=== PATIENT | male | born 1955 | race Caucasian/White ===

== ENCOUNTER 2017-01-01 15:03 | Inpatient (IN) | payer OTHER ==
[2017-01-01 16:04] VITALS: BMI 27.2
--- NOTE | 2017-01-01 16:07 | PDOC ---
History of Present Illness - General Stated Complaint: Alcohol intoxication Time Seen by Provider: 01/01/17 15:16 History Source: Patient Exam Limitations: No Limitations - History of Present Illness Initial Comments: 01/01/17 16:00 The patient is a 61M with no PMH who presents to the ED intoxicated after sustaining a fall. The patient had no LOC. He did have head trauma and is not on any blood thinners. He has no complaints of any kind of pain. He is still intoxicated because his story is changing constantly. He states he drinks at least 12 beers a day. Denies drug use or liquor use. Smokes 1/2 ppd. Past History - Past Medical History Allergies/Adverse Reactions: Allergies Allergy/AdvReac Type Severity Reaction Status Date / Time Penicillins Allergy Severe Swelling Verified 04/08/16 15:37 Home Medications: Ambulatory Orders NK [No Known Home Medication] 01/01/17 - Immunization History Immunization Up to Date: No - Psycho/Social/Smoking Cessation Hx Suicidal Ideation: No Smoking History: Never smoked Hx Alcohol Use: Yes Review of Systems - Review of Systems Able to Perform ROS?: (intoxicated) Is the patient limited Citizen Of [place] proficient: No Constitutional: No: Chills, Fever HEENTM: No: Ear Pain, Nose Pain, Mouth Pain Respiratory: No: Cough, Shortness of Breath Cardiac (ROS): No: Chest Pain ABD/GI: No: Nausea, Vomiting, Other (abd pain) Neurological: No: Headache, Numbness, Tingling, Weakness *Physical Exam - Physical Exam General Appearance: Yes: Nourished, Disheveled. No: Mild Distress HEENT: positive: Normal Voice, Hearing Grossly Normal Respiratory/Chest: positive: Lungs Clear, Normal Breath Sounds. negative: Chest Tender, Respiratory Distress, Accessory Muscle Use Cardiovascular: positive: Regular Rhythm, S1, S2, Tachycardia, Diastolic Murmur , Systolic Murmur Gastrointestinal/Abdominal: positive: Flat, Soft. negative: Tender, Distended, Guarding, Rebound, Tenderness Extremity: positive: Other (Abrasion on L elbow, b/l knees. Contusion on R forehead with hematoma.). negative: Swelling Integumentary: positive: Dry, Warm Neurologic: positive: Other (cannot perform neurologic exam) Procedures - Bedside Ultrasound Bedside Ultrasound: Focused Assessment w/Sonography for Trauma Remarks: 01/01/17 17:27 negative Heart Score/ECG Review - ECG Impressions Normal ECG: Yes Tachycardia: Sinus ED Treatment Course - LABORATORY CBC & Chemistry Diagram: 01/01/17 16:45 01/03/17 07:29 Medical Decision Making - Medical Decision Making 01/01/17 17:25 THe patient is a 61M with a hx of alcohol abuse who presents to the ED after sustaining a fall while intoxicated. BA is 299. He sustained abrasions to his L elbow, and b/l knees. He has a contusion w/ hematoma over his R forehead. I have ordered basic labs, a banana bag, and head CT to r/o intracranial hemorrhage. Bedside fast exam is negative, done with Dr. Merritt. *DC/Admit/Observation/Transfer Diagnosis at time of Disposition: Head injury Qualifiers: Encounter type: initial encounter Qualified Code(s): S09.90XA - Unspecified injury of head, initial encounter Alcohol withdrawal Qualifiers: Complication of substance-induced condition: with unspecified complication Qualified Code(s): F10.239 - Alcohol dependence with withdrawal, unspecified - Referrals - Attestations Physician Attestion: 01/01/17 16:24 I, Dr. Adriano Small, attest that this document has been prepared under my direction and personally reviewed by me in its entirety. I further attest, that it accurately reflects all work, treatment, procedures and medical decision -making performed by me.
[2017-01-01] MEDS ORDERED: FOLIC ACID INJECTION - 1 MG, THIAMINE HCL 100 MG, MULTIVIT INJECTION ADULT 10 ML in SOD... IVPB ONE (16:12)
--- NOTE | 2017-01-01 17:15 | PDOC ---
Attending Attestation - Resident Resident Name: VíctorfrancaAdriano - ED Attending Attestation I have performed the following: I have examined & evaluated the patient, The case was reviewed & discussed with the resident, I agree w/resident's findings & plan, Exceptions are as noted - HPI HPI: 01/01/17 17:13 Agree with the resident's HPI as documented in the electronic medical record. - Physicial Exam PE: 01/01/17 17:13 Agree with the resident's physical examination as documented in the electronic medical record. - Medical Decision Making 01/01/17 17:13 61-year-old male with history of alcoholism presents to the emergency department with various abrasions to the extremities, trunk and to the head after a reported mechanical fall while intoxicated. He is tachycardic and hypertensive. Differential diagnosis includes but is not limited to: Traumatic brain injury, concussion, abrasions, intoxication, electrolyte abnormality, toxic/metabolic derangement, alcohol withdrawal. Plan: 1. Labs 2. CT head 3. Tetanus toxoid 4. IV fluids for hydration 5. Ativan for sedation 6. Observe and reevaluate
[2017-01-01 17:20] LABS: BASOPHIL 2.3 % (0-2.0); EOSINOPHIL 1.5 % (0-4.5); MCHC 32.8 g/dl (32.0-35.9); MEAN CELL VOLUME 82.4 fl (80-96); MEAN PLT VOLUME 8.9 fl (7.5-11.1); NEUTROPHILS 69.4 % (42.8-82.8); PLATELET COUNT 112 K/MM3 (134-434); WHITE BLOOD COUNT 6.3 K/mm3 (4.0-10.0)
[2017-01-01] MEDS ORDERED: DIPHTH,PERTUSS(ACELL),TET 0.5 ML DISP.SYRIN IM ONE (17:25)
[2017-01-01 19:13] LABS: ALBUMIN 3.4 g/dl (3.4-5.0); ALK PHOS 132 U/L (45-117); ANION GAP 10 (8-16); BILIRUBIN,TOTAL 0.6 mg/dL (0.2-1.0); CALCIUM 8.5 mg/dL (8.5-10.1); CO2 25 mmol/L (21-32); CREATININE 0.7 mg/dL (0.7-1.3); GLUCOSE,RANDOM 111 mg/dL (74-106); SGOT/AST 107 U/L (15-37); SGPT/ALT 44 U/L (12-78); TOT PROT 7.4 g/dl (6.4-8.2)
[2017-01-01] MEDS ORDERED: LORazepam 2 MG/ML SDV VIAL ONE (21:07)
[2017-01-01 21:14] LABS: ANISOCYTOSIS 2+; POLYCHROMASIA 1+
[2017-01-01] MEDS ORDERED: chlordiazePOXIDE HCL 25 MG CAPSULE PO ONE (23:52)
[2017-01-02] MEDS ORDERED: chlordiazePOXIDE HCL 25 MG CAPSULE ONE ×2 (00:05→02:07)
[2017-01-02] MEDS ORDERED: chlordiazePOXIDE HCL 25 MG CAPSULE PO ONE (01:59)
--- NOTE | 2017-01-02 01:59 | PDOC ---
*Physical Exam - Vital Signs Last Vital Signs Temp Pulse Resp BP Pulse Ox 98.1 F 101 H 18 153/94 98 01/01/17 23:17 01/01/17 23:17 01/01/17 23:17 01/01/17 23:17 01/01/17 23:17 ED Treatment Course - LABORATORY CBC & Chemistry Diagram: 01/01/17 16:45 01/01/17 16:45 - ADDITIONAL ORDERS Additional order review: Laboratory Results 01/01/17 01/01/17 18:35 16:45 Sodium 134 L Potassium 3.9 Chloride 99 Carbon Dioxide 25 Anion Gap 10 BUN 7 Creatinine 0.7 Creat Clearance w eGFR > 60 Random Glucose 111 H Calcium 8.5 Total Bilirubin 0.6 AST 107 H ALT 44 Alkaline Phosphatase 132 H Total Protein 7.4 Albumin 3.4 Alcohol, Quantitative 326.9 H* 01/01/17 16:45 RBC 4.38 MCV 82.4 MCHC 32.8 RDW 21.0 H MPV 8.9 Neutrophils % 69.4 Lymphocytes % 15.5 Monocytes % 11.3 H Eosinophils % 1.5 Basophils % 2.3 H - Medications Given in the ED: ED Medications Discontinued Medications Generic Name Dose Route Start Last Admin Trade Name Freq PRN Reason Stop Dose Admin Chlordiazepoxide HCl 50 mg 01/01/17 23:52 01/02/17 00:07 Librium - PO 01/01/17 23:53 50 mg ONCE ONE Administration Diphtheria/Tetanus/Acell Pertussis 0.5 ml 01/01/17 17:25 01/01/17 21:03 Boostrix - IM 01/01/17 17:26 0.5 ml .ONCE ONE Administration Folic Acid 1 mg/ Thiamine HCl 1,000 mls @ 125 mls/hr 01/01/17 16:12 01/01/17 17 :05 100 mg/ Multivitamins/Minerals IVPB 01/02/17 00:11 125 mls/hr 10 ml/ Sodium Chloride ONCE ONE Administration Lorazepam 2 mg 01/01/17 17:06 01/01/17 17:19 Ativan Injection - IVPUSH 01/01/17 17:07 2 mg ONCE ONE Administration Lorazepam 2 mg 01/01/17 20:41 01/01/17 21:05 Ativan Injection - IVPUSH 01/01/17 20:42 2 mg ONCE ONE Administration Medical Decision Making - Medical Decision Making 01/02/17 02:01 have attempted many times to have patient Ambulate. Patient however still very tremulous and unsteady when he attempts to ambulate. Will admit *DC/Admit/Observation/Transfer Diagnosis at time of Disposition: Head injury Qualifiers: Encounter type: initial encounter Qualified Code(s): S09.90XA - Unspecified injury of head, initial encounter Alcohol withdrawal Qualifiers: Complication of substance-induced condition: with unspecified complication Qualified Code(s): F10.239 - Alcohol dependence with withdrawal, unspecified - Discharge Dispostion Admit: Yes - Referrals Referrals: Luis Ordoñez MD [Primary Care Provider] - - Patient Instructions - Post Discharge Activity
[2017-01-02] MEDS ORDERED: KETOROLAC TROMETHAMINE 30 MG/1 ML VIAL IVPUSH ONE (02:02)
[2017-01-02] MEDS ORDERED: KETOROLAC TROMETHAMINE 30 MG/1 ML VIAL ONE (02:07)
--- NOTE | 2017-01-02 03:24 | PN ---
Teaching Attending Note Name of Resident: Jose James ATTENDING PHYSICIAN STATEMENT I saw and evaluated the patient. I reviewed the resident's note and discussed the case with the resident. I agree with the resident's findings and plan as documented. SUBJECTIVE: 61 M with no pmhx who presents s/p fall. He stated he was intoxicated at the time of the fall. States he hit his forhead. No chest pain, pressure, headaches , visual changes. States he drinks 12-14 beers/day and is a current smoker. OBJECTIVE: Physical: VS: Vital Signs Period Temp Pulse Resp BP Sys/Spangler Pulse Ox Last 24 Hr 98.1 F-98.4 F 101-111 18-20 153-173/94-98 97-98 GEN: NAD, Resting in bed HEENT: NCAT, PERRL CARD: RRR S1, S2 RESP: CTAB ABD: BSx4, NTD to palpation EXT: - C/C/E CBCD WBC 6.3 K/mm3 (4.0-10.0) 01/01/17 16:45 RBC 4.38 M/mm3 (4.00-5.60) 01/01/17 16:45 Hgb 11.9 GM/dL (11.7-16.9) 01/01/17 16:45 Hct 36.1 % (35.4-49) 01/01/17 16:45 MCV 82.4 fl (80-96) 01/01/17 16:45 MCHC 32.8 g/dl (32.0-35.9) 01/01/17 16:45 RDW 21.0 % (11.9-15.9) H 01/01/17 16:45 Plt Count 112 K/MM3 (134-434) L 01/01/17 16:45 MPV 8.9 fl (7.5-11.1) 01/01/17 16:45 CMP Sodium 134 mmol/L (136-145) L 01/01/17 16:45 Potassium 3.9 mmol/L (3.5-5.1) 01/01/17 16:45 Chloride 99 mmol/L (98-107) 01/01/17 16:45 Carbon Dioxide 25 mmol/L (21-32) 01/01/17 16:45 Anion Gap 10 (8-16) 01/01/17 16:45 BUN 7 mg/dL (7-18) 01/01/17 16:45 Creatinine 0.7 mg/dL (0.7-1.3) 01/01/17 16:45 Creat Clearance w eGFR > 60 (>60) 01/01/17 16:45 Random Glucose 111 mg/dL (74-106) H 01/01/17 16:45 Calcium 8.5 mg/dL (8.5-10.1) 01/01/17 16:45 Total Bilirubin 0.6 mg/dL (0.2-1.0) 01/01/17 16:45 AST 107 U/L (15-37) H 01/01/17 16:45 ALT 44 U/L (12-78) 01/01/17 16:45 Alkaline Phosphatase 132 U/L (45-117) H 01/01/17 16:45 Total Protein 7.4 g/dl (6.4-8.2) 01/01/17 16:45 Albumin 3.4 g/dl (3.4-5.0) 01/01/17 16:45 EKG: NSR, q waves anteroseptal leads QTc 497 CXR: No acute process CT HEAD: Negative ASSESSMENT AND PLAN: 61 M with no pmhx presents s/p fall with acute etoh intoxication 1.) ETOH abuse/intoxication - Monitor for signs of Withdrawl CIWA - S/P Banana bag in ED, C/W Thiamine/Folic A - Librium protocol - Detox consult 2.) S/P fall - CT Head negative 3.) Dvt Ppx - Low Risk- SCD Rest as per resident note Place in [facility]
--- NOTE | 2017-01-02 03:48 | HP ---
Admitting History and Physical - Admission History of Present Illness: 61yo M with history of alcoholism is seen in the ER for intoxication and mechanical fall resulting in head trauma. Pt reports being intoxicated in striking his head and limbs. Pt had no loss of consciousness and is not on any blood thinners. He also reports tremors beginning Saturday afternoon and getting progressively worse until today. He admits to drinking 6-12 beers per day for the past 20 years. Pt denies paraoxysmal sweats, visual, auditory, and tactile disturbances, n/v/d/c, and agitation. ER course notable for: 1) Head Ct - negative for acute pathology 2) CXR - pending official read; by my read no cardiomegaly, normal interstitial lung markings, no effusions or opacities 3) Librium 50mg PO given 4) EKG - sinus tachycardia at a rate of 109 5) CBC, CMP, Alcohol quantitative revealing elevated liver enzymes (Alk phos 132 , AST 107, ALT 44) and alcohol level of 326.9 History Source: Patient Limitations to Obtaining History: No Limitations - Past Surgical History Additional Past Surgical History: Denies - Smoking History Smoking history: Current every day smoker Have you smoked in the past 12 months: Yes Aproximately how many cigarettes per day: 15 - Alcohol/Substance Use Hx Alcohol Use: Yes Number of Drinks Daily: 6 (Range 6-14 /day) History of Substance Use: reports: None - Social History History of Recent Travel: No Home Medications - Allergies Allergies/Adverse Reactions: Allergies Allergy/AdvReac Type Severity Reaction Status Date / Time Penicillins Allergy Severe Swelling Verified 04/08/16 15:37 - Home Medications Home Medications: Ambulatory Orders NK [No Known Home Medication] 01/01/17 Physical Examination Vital Signs: Vital Signs Temperature 98.1 F 01/01/17 23:17 Pulse Rate 101 H 01/01/17 23:17 Respiratory Rate 18 01/01/17 23:17 Blood Pressure 153/94 01/01/17 23:17 O2 Sat by Pulse Oximetry (%) 98 01/01/17 23:17 Constitutional: Yes: No Distress, Calm, Poor Hygeine Eyes: Yes: EOM Intact, PERRL, Sclera Icterus, Other (Horizontal nystagmus noted on EOM examination) HENT: Yes: Normocephalic, Other (No hematoma formation where he fell and struck his head.) Neck: Yes: Trachea Midline Cardiovascular: Yes: Tachycardia, Murmur (systolic murmur (pt admits to having it from childhood)) Respiratory: Yes: Regular, Wheezes (Expiratory wheezes throughout). No: Accessory Muscle Use, SOB Gastrointestinal: Yes: Normal Bowel Sounds, Soft. No: Hepatomegaly, Splenomegaly, Tenderness Edema: No Integumentary: Yes: Other (Abrasion noted to R knee; no active bleeding, site clean and without purulence) Neurological: Yes: Alert, Oriented, Tremors (tremors noted with and without intention) Psychiatric: Yes: Alert, Oriented. No: Agitated Assessment/Plan 61yo M with history of alcoholism admitted to [facility] for alcohol withdrawal. 6-12 beers per day for the past 20 years. Oriented and alert with tremors 1) Alcohol Withdrawal --CIWA score of 7 --Librium protocol taper initiated; received first dose of 50mg in ER --Next dose 0800h 01/02 --Folic acid scheduled dose --Thiamine schedule dosing --Ativan 1mg PRN for --Mg level routine ordered for morning labs --Elias consulted 2) Elevated Liver enzymes --AST 107, ALT 44, Alk Phos 132 --Due to chronic alcohol abuse --NT abdomen with no hepatomegaly, would recommend liver US follow-up as outpatient FEN: Fluids: Not at this time Electrolyte abnormalities: Weakly hyponatremic at 134 Nutrition: Regular diet PPX: DVT: SCDs b/l legs GI: Not indicated at this time Dispo: Admit to telemetry Visit type - Emergency Visit Emergency Visit: Yes ED Registration Date: 01/02/17 Care time: The patient presented to the Emergency Department on the above date and was hospitalized for further evaluation of their emergent condition. - New Patient This patient is new to me today: Yes Date on this admission: 01/02/17 - Critical Care Critical Care patient: No
[2017-01-02] MEDS ORDERED: METOPROLOL TARTRATE 25 MG TABLET (FP) PO ONE (05:23)
[2017-01-02] MEDS: chlordiazePOXIDE HCL 25 MG CAPSULE PO SCH ×4 (05:57→23:10)
[2017-01-02] MEDS ORDERED: chlordiazePOXIDE HCL 25 MG CAPSULE PO PRN (08:00)
[2017-01-02 08:50] LABS: MAGNESIUM 1.9 mg/dL (1.8-2.4)
[2017-01-02 08:56] LABS: ANION GAP 10 (8-16); CALCIUM 8.3 mg/dL (8.5-10.1); CO2 26 mmol/L (21-32); CREATININE 0.6 mg/dL (0.7-1.3); GLUCOSE,RANDOM 78 mg/dL (74-106)
[2017-01-02] MEDS ORDERED: THIAMINE HCL 100 MG TABLET (FP) PO SCH (10:00)
[2017-01-02] MEDS ORDERED: THIAMINE HCL 200 MG/2 ML VIAL IVPB SCH (10:00)
[2017-01-02] MEDS: FOLIC ACID 1 MG TABLET (FP) PO SCH (10:36)
[2017-01-02] MEDS: DEXTROSE 5%-NORMAL SALINE 1,000 ML IV SCH (14:18)
[2017-01-02] MEDS: THIAMINE HCL 200 MG/2 ML VIAL IVPB SCH ×2 (14:19→22:50)
--- NOTE | 2017-01-02 14:40 | EKG ---
Test Reason : Blood Pressure : / mmHG Vent. Rate : 102 BPM Atrial Rate : 102 BPM P-R Int : 182 ms QRS Dur : 108 ms QT Int : 382 ms P-R-T Axes : 041 -23 037 degrees QTc Int : 497 ms SINUS TACHYCARDIA ANTEROSEPTAL INFARCT , AGE UNDETERMINED ABNORMAL ECG WHEN COMPARED WITH ECG OF 01-JAN-2017 16:01, NO SIGNIFICANT CHANGE WAS FOUND Confirmed by YUSUF OROURKE MD ([id number]) on 01/02/2017 2:40:04 PM Referred By: Confirmed By:YUSUF OROURKE MD
--- NOTE | 2017-01-02 15:23 | CONSULT ---
Consult Detox [facility] Reason for Current Admission/Consult: Alcohol withdrawal Referred by:: Jose James Res - History History of Present Illness: 61 y/o man with hx. of alcoholism came to ED following a fall with head trauma. Pt. was intoxicated and his story kept changing. - History Source History Provided By: Patient, Medical Record - Alcohol/Substance Use Hx Alcohol Use: Yes - Past Medical History CHEMIST PHARMACEUTICAL: Yes: Other (Tremor) - Significant Medical Findings: Laboratory Last Values WBC 6.3 K/mm3 (4.0-10.0) 01/01/17 16:45 RBC 4.38 M/mm3 (4.00-5.60) 01/01/17 16:45 Hgb 11.9 GM/dL (11.7-16.9) 01/01/17 16:45 Hct 36.1 % (35.4-49) 01/01/17 16:45 MCV 82.4 fl (80-96) 01/01/17 16:45 MCH 27.0 pg (25.7-33.7) 01/01/17 16:45 MCHC 32.8 g/dl (32.0-35.9) 01/01/17 16:45 RDW 21.0 % (11.9-15.9) H 01/01/17 16:45 Plt Count 112 K/MM3 (134-434) L 01/01/17 16:45 MPV 8.9 fl (7.5-11.1) 01/01/17 16:45 Neutrophils % 69.4 % (42.8-82.8) 01/01/17 16:45 Lymphocytes % 15.5 % (8-40) 01/01/17 16:45 Monocytes % 11.3 % (3.8-10.2) H 01/01/17 16:45 Eosinophils % 1.5 % (0-4.5) 01/01/17 16:45 Basophils % 2.3 % (0-2.0) H 01/01/17 16:45 Polychromasia 1+ 01/01/17 16:45 Anisocytosis 2+ 01/01/17 16:45 Sodium 142 mmol/L (136-145) 01/04/17 06:05 Potassium 3.2 mmol/L (3.5-5.1) L 01/04/17 06:05 Chloride 107 mmol/L (98-107) 01/04/17 06:05 Carbon Dioxide 25 mmol/L (21-32) 01/04/17 06:05 Anion Gap 10 (8-16) 01/04/17 06:05 BUN 10 mg/dL (7-18) 01/04/17 06:05 Creatinine 0.7 mg/dL (0.7-1.3) 01/04/17 06:05 Creat Clearance w eGFR > 60 (>60) 01/04/17 06:05 Random Glucose 127 mg/dL (74-106) H D 01/04/17 06:05 Calcium 8.5 mg/dL (8.5-10.1) 01/04/17 06:05 Magnesium 1.9 mg/dL (1.8-2.4) 01/03/17 07:29 Total Bilirubin 2.2 mg/dL (0.2-1.0) H 01/04/17 06:05 AST 252 U/L (15-37) H D 01/04/17 06:05 ALT 93 U/L (12-78) H D 01/04/17 06:05 Alkaline Phosphatase 108 U/L (45-117) 01/04/17 06:05 Total Protein 6.9 g/dl (6.4-8.2) 01/04/17 06:05 Albumin 3.3 g/dl (3.4-5.0) L 01/04/17 06:05 Alcohol, Quantitative 326.9 mg/dl (0-5) H* 01/01/17 18:35 labs noted CIWA Score - CIWA Score Nausea/Vomitin-No Nausea/No Vomiting Muscle Tremors: 4-Moderate,w/Arms Extend Anxiety: 4-Mod. Anxious/Guarded Agitation: 3 Paroxysmal Sweats: 3 Orientation: 0-Oriented Tacttile Disturbances: 0-None Auditory Disturbances: 0-None Visual Disturbances: 0-None Headache: 0-None Present CIWA-Ar Total Score: 14 Assessment Plan - Diagnosis (1) Alcohol dependence with uncomplicated withdrawal Status: Acute - Plan Plan: Pt. should be referred to out-pt treatment for alcohol. - Medication Detox Regimen/Protocol: Librium
--- NOTE | 2017-01-02 15:56 | PN ---
Progress Note (short form) - Note Progress Note: Urology: Urinary retention. Called to see pt with >1 liter of urien reported in bladder. Pt denies complaints of pain or difficulty urinating. Bladder not distended and non tender. House staff unable to pass garza. 16 fr coude catheter used and inserted without difficulty. Draining laarge amounts of clear danelle urine. Maintain garza until ambulatory. Laboratory Results - last 24 hr 01/01/17 01/01/17 01/01/17 16:45 16:45 18:35 WBC 6.3 RBC 4.38 Hgb 11.9 Hct 36.1 MCV 82.4 MCH 27.0 MCHC 32.8 RDW 21.0 H Plt Count 112 L MPV 8.9 Neutrophils % 69.4 Lymphocytes % 15.5 Monocytes % 11.3 H Eosinophils % 1.5 Basophils % 2.3 H Polychromasia 1+ Anisocytosis 2+ Sodium 134 L Potassium 3.9 Chloride 99 Carbon Dioxide 25 Anion Gap 10 BUN 7 Creatinine 0.7 Creat Clearance w eGFR > 60 Random Glucose 111 H Calcium 8.5 Magnesium Total Bilirubin 0.6 AST 107 H ALT 44 Alkaline Phosphatase 132 H Total Protein 7.4 Albumin 3.4 Alcohol, Quantitative 326.9 H* 01/02/17 01/02/17 07:30 08:22 WBC RBC Hgb Hct MCV MCH MCHC RDW Plt Count MPV Neutrophils % Lymphocytes % Monocytes % Eosinophils % Basophils % Polychromasia Anisocytosis Sodium 138 Cancelled Potassium 3.8 Cancelled Chloride 102 Cancelled Carbon Dioxide 26 Cancelled Anion Gap 10 Cancelled BUN 8 Cancelled Creatinine 0.6 L Cancelled Creat Clearance w eGFR Random Glucose 78 D Cancelled Calcium 8.3 L Cancelled Magnesium 1.9 Total Bilirubin AST ALT Alkaline Phosphatase Total Protein Albumin Alcohol, Quantitative
--- NOTE | 2017-01-02 16:20 | PN ---
Teaching Attending Note Name of Resident: Catracho Blackwood ATTENDING PHYSICIAN STATEMENT I saw and evaluated the patient. I reviewed the resident's note and discussed the case with the resident. I agree with the resident's findings and plan as documented. SUBJECTIVE: no fever or chills, has pain in b/l flanks and b/l Lower back .denied any LOC at time of fall OBJECTIVE: NAD , awake , alert , oriented R fore head laceration horizontal nystagmus CV: RRR, 3/6 SM at LLSB Lungs: CTAB ext : no edema ,. has bruises and laceration onlegs and knees. MS: bruises on flanks Abd : bruise in RUQ ., no TTP gait : slight unsteadiness ASSESSMENT AND PLAN: 61 y/o man with h/o alcohol abuse , who presented with mechanical fall and was found to have alcohol withdrawal 1- Mechanical fall , no LOC. head CT neg 2- ETOH withdrawal: - cont librium protocol - due to the nystagmus and unsteady gait , will treat for presumed Wernicke's . high dose IV thiamine 500 q 8 h x 2 days then 250 mg daily x 5 days . 3- tTransaminitis : likely due to alcohol abuse. US noted 4- Urinary retention ; needed garza by uro. > 1L or urine came out HLOC
--- NOTE | 2017-01-02 17:32 | PN ---
Physical Exam: SUBJECTIVE: Patient seen and examined this AM. States that he has shoulder and back pain, but on re-examination hours later denies them. Pt has no CP, no SOB, no fever, no chills. OBJECTIVE: Vital Signs Period Temp Pulse Resp BP Sys/Spangler Pulse Ox Last 24 Hr 97.8 F-98.5 F 76-110 16-20 153-167/87-102 96-97 GENERAL: AAOx3, NAD, no labored repsirations HEENT: PERRLA, EOMi w/ horizontal nystagmus most noticeable on R lateral gaze; facial brsing CV: S1, S2, RRR, 3/6 systolic murmur at the LLSB Lung: CTABL, no wheezes ABD: Soft, NT, ND EXT: Pt has multiple scabs/bruises on knees, legs, abdomen, flank NEURO: CN 2-12 is intact, besides horizontal nystagmus. Sensation is equal and intact in face/body bilaterally, MSK 5+ in all extremities. Reflexes 1+ Laboratory Results - last 24 hr 01/02/17 01/02/17 07:30 08:22 Sodium 138 Cancelled Potassium 3.8 Cancelled Chloride 102 Cancelled Carbon Dioxide 26 Cancelled Anion Gap 10 Cancelled BUN 8 Cancelled Creatinine 0.6 L Cancelled Random Glucose 78 D Cancelled Calcium 8.3 L Cancelled Magnesium 1.9 Active Medications Generic Name Dose Route Start Last Admin Trade Name Freq PRN Reason Stop Dose Admin Chlordiazepoxide HCl 50 mg 01/02/17 06:00 01/02/17 17:06 Librium - PO 01/02/17 23:01 50 mg [id number] THOMAS Administration Chlordiazepoxide HCl 25 mg 01/02/17 08:00 Librium - PO 01/05/17 07:59 Q4H PRN WITHDRAWAL(CONT SUBST) Chlordiazepoxide HCl 25 mg 01/03/17 05:00 Librium - PO 01/03/17 23:01 [id number] THOMAS Chlordiazepoxide HCl 15 mg 01/04/17 05:00 Librium - PO 01/04/17 23:01 [id number] THOMAS Folic Acid 1 mg 01/02/17 10:00 01/02/17 10:36 Folic Acid - PO 1 mg DAILY THOMAS Administration Dextrose/Sodium Chloride 1,000 mls @ 75 mls/hr 01/02/17 08:30 01/02/17 14:18 D5-Ns - IV 75 mls/hr ASDIR THOMAS Administration Lorazepam 2 mg 01/02/17 03:19 Ativan Injection - IVPUSH DAILY PRN AGITATION Thiamine HCl 500 mg 01/02/17 14:00 01/02/17 14:19 Vitamin B1 Injection - IVPB 01/03/17 23:59 500 mg TID THOMAS Administration Thiamine HCl 250 mg 01/04/17 06:00 Vitamin B1 Injection - IVPB DAILY@0600 [facility] ASSESSMENT/PLAN: Pt is a 61yo M with history of chronic alcohol abuse who presented to the ER intoxicated and s/p mechanical fall w/ head trauma, no LOC. CIWA score on admission was 7. He was treated in the ED with thiamine, folate, librium in ED # Alcohol Withdrawal - On librium protocol - Presumed Wernicke's due to nystagmus and unsteadiness - High dose IV thiamine 500m Q8 x 2 days --> IV Thiamine 250mg daily for 5 days - PRN Ativan for agitation - Continue CIWA assessment as needed # Transaminitis - AST/ALT >2 - Liver U/S shows hepatocellular disease - Needs f/u o/p to monitor for progression # Urinary Retention - Likely due to BPH - Many attempts at catheter placement - Urology consulted, placed 16 azeri garza, drained >1 danelle urnie - CMP for 7pm to check for electrolyte abnormalities # FEN - Fluids: D5NS 75cc/hr - Electrolytes: Monitor at 7pm - Nutrition: Regular diet # Prophylaxis - DVT: SCDs - GI: Not indicated - Deconditioning: Pt is ambulatory # Disposition - Monito withdrawal Visit type - Emergency Visit Emergency Visit: No - New Patient This patient is new to me today: No - Critical Care Critical Care patient: No - Discharge Referral Referred to [facility] No
[2017-01-02] MEDS ORDERED: LORazepam 2 MG/ML SDV VIAL IVPUSH PRN (18:17)
--- NOTE | 2017-01-02 19:23 | HOSP ---
Subjective - Review of Symptoms Subjective: Paged about patient at 19:00h on 01/02/17. Pt was found on floor of hospital room after trying to get up and leave the hospital bed. He is actively withdrawing from alcohol abuse and has an extremely unsteady gait thus causing the fall. Pt did not lose consciousness, pt is not on any blood thinners, and pt did not hit his head during fall. Pt admits to increased paroxysmal sweating, agitation, anxiety and severe tremor. Pt denies any auditory, visual, or tactile hallucinations. Denies headaches or clouding if sensorium. Physical Examination Vital Signs: Vital Signs Temperature 98.5 F 01/02/17 14:57 Pulse Rate 95 H 01/02/17 14:57 Respiratory Rate 18 01/02/17 09:00 Blood Pressure 167/87 01/02/17 06:00 O2 Sat by Pulse Oximetry (%) 97 01/02/17 04:40 Constitutional: Yes: Anxious, Diaphoresis (noted on forehead), Mild Distress, Poor Hygeine Eyes: Yes: EOM Intact, PERRL, Sclera Icterus HENT: Yes: Atraumatic, Normocephalic Cardiovascular: Yes: Tachycardia, Murmur (systolic murmur (congenital)) Respiratory: Yes: Regular, Wheezes (expiratory wheezes). No: Accessory Muscle Use, SOB Gastrointestinal: Yes: Soft, Abdomen, Obese. No: Hepatomegaly, Splenomegaly, Tenderness Extremities: Yes: Other (Severe tremor in extremities noted at rest) Edema: No Neurological: Yes: Alert, Oriented (x3), Tremors Psychiatric: Yes: Alert, Oriented, Agitated Labs: CBC, BMP 01/02/17 08:22 Hospitalist Encounter Assessment: Pt CIWA score at this time is 20. 1) Alcohol withdrawal --Received librium 50 at 1700h (librium protocol in place) --Received 2 mg Ativan 18:45 --Disruptive to treatment and combative: Jacy hugger and cameliatens ordered 2) Mechanical fall --Pt does not CT scan or Xrays at this point. --No acute lacerations, contusions, abrasions seen --No loss consciousness --Not on long-term anticoagulation --Moves all four extremities normally; reports no pain
[2017-01-02] MEDS ORDERED: LORazepam 2 MG/ML SDV VIAL IM ONE (20:00)
[2017-01-02 21:19] LABS: ALBUMIN 3.7 g/dl (3.4-5.0); ALK PHOS 132 U/L (45-117); ANION GAP 12 (8-16); CALCIUM 8.9 mg/dL (8.5-10.1); CO2 26 mmol/L (21-32); CREATININE 0.9 mg/dL (0.7-1.3); GLUCOSE,RANDOM 109 mg/dL (74-106); SGOT/AST 170 U/L (15-37); SGPT/ALT 54 U/L (12-78)
[2017-01-03] MEDS: THIAMINE HCL 200 MG/2 ML VIAL IVPB SCH ×3 (06:22→21:26)
[2017-01-03] MEDS: chlordiazePOXIDE HCL 25 MG CAPSULE PO SCH ×3 (06:23→17:04)
[2017-01-03 08:16] LABS: ALBUMIN 3.6 g/dl (3.4-5.0); ANION GAP 11 (8-16); BILIRUBIN,TOTAL 2.6 mg/dL (0.2-1.0); CALCIUM 8.8 mg/dL (8.5-10.1); CO2 27 mmol/L (21-32); CREATININE 0.8 mg/dL (0.7-1.3); GLUCOSE,RANDOM 99 mg/dL (74-106); SGOT/AST 188 U/L (15-37); SGPT/ALT 59 U/L (12-78)
[2017-01-03 08:17] LABS: ALK PHOS 125 U/L (45-117); TOT PROT 7.8 g/dl (6.4-8.2)
[2017-01-03] MEDS ORDERED: POTASSIUM CHLORIDE TABS 20 MEQ TABLET.ER (FP) PO ONE (09:00)
[2017-01-03] MEDS: FOLIC ACID 1 MG TABLET (FP) PO SCH (10:01)
[2017-01-03 10:47] LABS: MAGNESIUM 1.9 mg/dL (1.8-2.4)
[2017-01-03] MEDS: DEXTROSE 5%-NORMAL SALINE 1,000 ML IV SCH (11:25)
[2017-01-03] MEDS ORDERED: PT OWN MED DRAWER 7, Y5N ONE ×2 (14:17→21:04)
--- NOTE | 2017-01-03 14:56 | PN ---
Teaching Attending Note Name of Resident: Catracho Blackwood ATTENDING PHYSICIAN STATEMENT I saw and evaluated the patient. I reviewed the resident's note and discussed the case with the resident. I agree with the resident's findings and plan as documented. SUBJECTIVE: no fever or chills. no bd pain ,no CP . Events last night noted for severe agitation. OBJECTIVE: NAD , awake , alert , oriented R fore head laceration horizontal nystagmus CV: RRR, 3/6 SM at LLSB Lungs: CTAB Ext : no edema. has bruises and laceration on legs and knees.tremor on hands MS: bruises on flanks ASSESSMENT AND PLAN: 61 y/o man with h/o alcohol abuse , who presented with mechanical fall and was found to have alcohol withdrawal 1- Mechanical fall , no LOC. head CT neg 2-Severe ETOH withdrawal: cont to have tachycardia, HTN, and tremor - cont librium protocol . - Cont MN N Benzo , can change Ativan to Librium - Cont IV thiamine for presumptive wernicke's . will change o 250 mg daily after 6 doses . 3- Transaminitis : likely due to alcohol abuse. - Cont to monitor 4- Urinary retention ; blood tinged urine due to trauma over night - cont garza - add lfomax HLOC
[2017-01-03] MEDS ORDERED: diazePAM CARPU-JECT 10 MG/2 ML DISP.SYRIN IVPUSH PRN (18:09)
--- NOTE | 2017-01-03 21:13 | PN ---
Physical Exam: SUBJECTIVE: Patient seen and examined this AM. Overnight pt became confused, agitated, seen by night hospitalist financial analyst intern, CIWA score 20, given Ativan x2 with relief. This AM pt is better, CIWA 0-1. Pt is AAOx3, no complaints. No CP, no SOB, no fevers, no chills. OBJECTIVE: Vital Signs Period Temp Pulse Resp BP Sys/Spangler Pulse Ox Last 24 Hr 98 F-98.9 F 82-112 20-20 140-172/80-100 GENERAL: AAOx3, NAD, no labored repsirations HEENT: PERRLA, EOMi w/ horizontal nystagmus most noticeable on R lateral gaze; facial brsuing CV: S1, S2, RRR, 3/6 systolic murmur at the LLSB Lung: CTABL, no wheezes ABD: Soft, NT, ND EXT: Pt has multiple scabs/bruises on knees, legs, abdomen, flank NEURO: CN 2-12 is intact, besides horizontal nystagmus. Sensation is equal and intact in face/body bilaterally, MSK 5+ in all extremities. Reflexes 1+ Laboratory Results - last 24 hr 01/02/17 01/03/17 01/03/17 20:00 06:05 07:29 Sodium 137 139 Potassium 3.8 3.4 L Chloride 99 101 Carbon Dioxide 26 27 Anion Gap 12 11 BUN 11 D 11 Creatinine 0.9 D 0.8 Creat Clearance w eGFR > 60 > 60 Random Glucose 109 H D 99 Calcium 8.9 8.8 Magnesium Cancelled 1.9 Total Bilirubin 2.0 H D 2.6 H D AST 170 H D 188 H ALT 54 D 59 Alkaline Phosphatase 132 H 125 H Total Protein 8.0 7.8 Albumin 3.7 3.6 Active Medications Generic Name Dose Route Start Last Admin Trade Name Freq PRN Reason Stop Dose Admin Chlordiazepoxide HCl 25 mg 01/02/17 08:00 Librium - PO 01/05/17 07:59 Q4H PRN WITHDRAWAL(CONT SUBST) Chlordiazepoxide HCl 25 mg 01/03/17 05:00 01/03/17 17:04 Librium - PO 01/03/17 23:01 25 mg [id number] THOMAS Administration Chlordiazepoxide HCl 15 mg 01/04/17 05:00 Librium - PO 01/04/17 23:01 [id number] THOMAS Diazepam 5 mg 01/03/17 18:09 Valium Injection - IVPUSH 01/04/17 03:00 ONCE PRN AGITATION Folic Acid 1 mg 01/02/17 10:00 01/03/17 10:01 Folic Acid - PO 1 mg DAILY THOMAS Administration Dextrose/Sodium Chloride 1,000 mls @ 75 mls/hr 01/02/17 08:30 01/03/17 11:25 D5-Ns - IV 75 mls/hr ASDIR THOMAS Administration Tamsulosin HCl 0.4 mg 01/04/17 08:30 Flomax - PO DAILY@0830 [facility] Thiamine HCl 500 mg 01/02/17 14:00 01/03/17 14:34 Vitamin B1 Injection - IVPB 01/03/17 23:59 500 mg TID THOMAS Administration Thiamine HCl 250 mg 01/04/17 06:00 Vitamin B1 Injection - IVPB DAILY@0600 [facility] ASSESSMENT/PLAN: Pt is a 61yo M with history of chronic alcohol abuse who presented to the ER intoxicated and s/p mechanical fall w/ head trauma, no LOC. CIWA score on admission was 7. He was treated in the ED with thiamine, folate, librium in ED # Alcohol Withdrawal - On librium protocol - Presumed Wernicke's due to nystagmus and unsteadiness - High dose IV thiamine 500m 6 doses --> IV Thiamine 250mg daily for 5 days - PRN Valium for agitation - Continue CIWA assessment as needed # Transaminitis - AST/ALT >2 - Liver U/S shows hepatocellular disease - Needs f/u o/p to monitor for progression # Urinary Retention - Pt has garza, blood tinged b/c of pt induced trauma # FEN - Fluids: D5NS 75cc/hr - Electrolytes: Continue to monitor - Nutrition: Regular diet # Prophylaxis - DVT: SCDs - GI: Not indicated - Deconditioning: Pt is ambulatory # Disposition - Monitor withdrawal Visit type - Emergency Visit Emergency Visit: No - New Patient This patient is new to me today: No - Critical Care Critical Care patient: No - Discharge Referral Referred to [facility] Med P.C.: No
[2017-01-04] MEDS: chlordiazePOXIDE HCL 25 MG CAPSULE PO SCH (00:19)
[2017-01-04] MEDS: chlordiazePOXIDE 5 MG CAPSULE PO SCH ×4 (06:11→23:04)
[2017-01-04] MEDS: THIAMINE HCL 200 MG/2 ML VIAL IVPB SCH (06:12)
[2017-01-04] MEDS: DEXTROSE 5%-NORMAL SALINE 1,000 ML IV SCH (06:23)
[2017-01-04] MEDS ORDERED: diazePAM CARPU-JECT 10 MG/2 ML DISP.SYRIN IVPUSH ONE ×2 (07:18→10:00)
[2017-01-04 07:24] LABS: ALBUMIN 3.3 g/dl (3.4-5.0); ANION GAP 10 (8-16); CALCIUM 8.5 mg/dL (8.5-10.1); CO2 25 mmol/L (21-32); GLUCOSE,RANDOM 127 mg/dL (74-106)
[2017-01-04 07:28] LABS: ALK PHOS 108 U/L (45-117); BILIRUBIN,TOTAL 2.2 mg/dL (0.2-1.0); CREATININE 0.7 mg/dL (0.7-1.3); SGOT/AST 252 U/L (15-37); SGPT/ALT 93 U/L (12-78); TOT PROT 6.9 g/dl (6.4-8.2)
[2017-01-04] MEDS ORDERED: POTASSIUM CHLORIDE TABS 20 MEQ TABLET.ER (FP) PO ONE ×2 (08:06→20:00)
[2017-01-04] MEDS: TAMSULOSIN HCL 0.4 MG CAP.ER.24H (FP) PO SCH (09:01)
--- NOTE | 2017-01-04 09:35 | EKG ---
Test Reason : Blood Pressure : / mmHG Vent. Rate : 104 BPM Atrial Rate : 104 BPM P-R Int : 198 ms QRS Dur : 110 ms QT Int : 370 ms P-R-T Axes : 063 -24 063 degrees QTc Int : 486 ms SINUS TACHYCARDIA NON-SPECIFIC INTRA-VENTRICULAR CONDUCTION DELAY NO PREVIOUS ECGS AVAILABLE Confirmed by ARNALDO FOREMAN MD ([id number]) on 01/04/2017 9:34:36 AM Referred By: Confirmed By:ARNALDO FOREMAN MD
[2017-01-04] MEDS: FOLIC ACID 1 MG TABLET (FP) PO SCH (10:08)
[2017-01-04] MEDS ORDERED: DEXTROSE 5%-NORMAL SALINE 1,000 ML IV SCH (11:18)
--- NOTE | 2017-01-04 15:56 | PN ---
Teaching Attending Note Name of Resident: Catracho Blackwood ATTENDING PHYSICIAN STATEMENT I saw and evaluated the patient. I reviewed the resident's note and discussed the case with the resident. I agree with the resident's findings and plan as documented. SUBJECTIVE: no fever or chills. was very confused and agitated last night OBJECTIVE: NAD , awake , alert R fore head laceration CV: RRR, 3/6 SM at LLSB Lungs: CTAB Ext : no edema. has bruises and laceration on legs and knees.tremor on hands MS: bruises on flanks ASSESSMENT AND PLAN: 61 y/o man with h/o alcohol abuse , who presented with mechanical fall and was found to have alcohol withdrawal 1- Mechanical fall no LOC. 2-Severe ETOH withdrawal: - cont librium protocol . - Cont PRN valume - Cont IV thiamine for presumptive wernicke's. now 250 mg daily x 5 days ( day 1 ) 3- Transaminitis : likely due to alcohol abuse. - Cont to monitor 4- Urinary retention ; blood tinged urine due to trauma - cont garza - COnt flomax HLOC
[2017-01-04] MEDS ORDERED: LORazepam 2 MG/ML SDV VIAL IVPUSH ONE ×2 (17:28→17:45)
[2017-01-04] MEDS ORDERED: diazePAM CARPU-JECT 10 MG/2 ML DISP.SYRIN IVPUSH PRN (19:58)
--- NOTE | 2017-01-04 20:01 | PN ---
Physical Exam: SUBJECTIVE: Patient seen and examined this AM. Pt is AAOx2, does not know his location. Pt was very confused and agitated last night. No fevers, no chills, no CP, no SOB OBJECTIVE: Vital Signs Period Temp Pulse Resp BP Sys/Spangler Pulse Ox Last 24 Hr 97.6 F-99.2 F 100-122 18-20 140-157/78-100 GENERAL: AAOx2, NAD, no labored repsirations HEENT: PERRLA, EOMi w/ horizontal nystagmus most noticeable on R lateral gaze; facial brsuing CV: S1, S2, RRR, 3/6 systolic murmur at the LLSB Lung: CTABL, no wheezes ABD: Soft, NT, ND, RUQ bruising EXT: Pt has multiple scabs/bruises on knees, legs, abdomen, flank : Garza w/ blood tinged, blood near meatus, from trauma NEURO: CN 2-12 is intact, besides horizontal nystagmus. Sensation is equal and intact in face/body bilaterally, MSK 5+ in all extremities. Reflexes 1+ Laboratory Results - last 24 hr 01/04/17 06:05 Sodium 142 Potassium 3.2 L Chloride 107 Carbon Dioxide 25 Anion Gap 10 BUN 10 Creatinine 0.7 Creat Clearance w eGFR > 60 Random Glucose 127 H D Calcium 8.5 Total Bilirubin 2.2 H AST 252 H D ALT 93 H D Alkaline Phosphatase 108 Total Protein 6.9 Albumin 3.3 L Active Medications Generic Name Dose Route Start Last Admin Trade Name Freq PRN Reason Stop Dose Admin Chlordiazepoxide HCl 25 mg 01/02/17 08:00 Librium - PO 01/05/17 07:59 Q4H PRN WITHDRAWAL(CONT SUBST) Chlordiazepoxide HCl 15 mg 01/04/17 05:00 01/04/17 17:45 Librium - PO 01/04/17 23:01 15 mg [id number] THOMAS Administration Diazepam 10 mg 01/04/17 19:58 Valium Injection - IVPUSH 01/05/17 19:57 ONCE PRN AGITATION Folic Acid 1 mg 01/02/17 10:00 01/04/17 10:08 Folic Acid - PO 1 mg DAILY THOMAS Administration Dextrose/Sodium Chloride 1,000 mls @ 50 mls/hr 01/04/17 11:18 D5-Ns - IV ASDIR [facility] Potassium Chloride 40 meq 01/04/17 20:00 K-Dur - PO 01/04/17 20:01 ONCE ONE Tamsulosin HCl 0.4 mg 01/04/17 08:30 01/04/17 09:01 Flomax - PO 0.4 mg DAILY@0830 [facility] Administration Thiamine HCl 250 mg 01/04/17 06:00 01/04/17 06:12 Vitamin B1 Injection - IVPB 250 mg DAILY@0600 [facility] Administration ASSESSMENT/PLAN: Pt is a 61yo M with history of chronic alcohol abuse who presented to the ER intoxicated and s/p mechanical fall w/ head trauma, no LOC. CIWA score on admission was 7. He was treated in the ED with thiamine, folate, librium in ED. He is on High dose IV thiamine 500m 6 doses --> IV Thiamine 250mg daily for 5 days for presumptive Wernicke # Alcohol Withdrawal - On librium protocol - Presumed Wernicke's due to nystagmus and unsteadiness - Day 1/5 of IV Thiamine 250 - PRN Valium for agitation - Continue CIWA # Transaminitis - AST/ALT >2 - Liver U/S shows hepatocellular disease - Needs f/u o/p to monitor for progression # Urinary Retention - Pt has garza, blood tinged b/c of pt induced trauma - Continue flomax # FEN - Fluids: D5NS 50cc/hr - bc of variable PO intake - Electrolytes: Continue to monitor - Nutrition: Regular diet # Prophylaxis - DVT: SCDs - GI: Not indicated - Deconditioning: PT on hold until patient is not withdrawin # Disposition - Monitor withdrawal, needs 4 more days of IV thiamine - [facility] transfer to [facility] after Dr. Catracho Blackwood MD - Medicine PGY1 Visit type - Emergency Visit Emergency Visit: No - New Patient This patient is new to me today: No - Critical Care Critical Care patient: No - Discharge Referral Referred to [facility] Med P.C.: No
[2017-01-05] MEDS ORDERED: PT OWN MED DRAWER 7, Y5N ONE (05:03)
[2017-01-05] MEDS: THIAMINE HCL 200 MG/2 ML VIAL IVPB SCH (05:35)
[2017-01-05] MEDS ORDERED: THIAMINE HCL 200 MG/2 ML VIAL IVPB SCH (06:00)
[2017-01-05 08:22] LABS: ALBUMIN 3.2 g/dl (3.4-5.0); ALK PHOS 102 U/L (45-117); ANION GAP 9 (8-16); CALCIUM 8.5 mg/dL (8.5-10.1); CO2 26 mmol/L (21-32); CREATININE 0.6 mg/dL (0.7-1.3); GLUCOSE,RANDOM 105 mg/dL (74-106); SGOT/AST 200 U/L (15-37); SGPT/ALT 94 U/L (12-78); TOT PROT 6.9 g/dl (6.4-8.2)
[2017-01-05] MEDS: TAMSULOSIN HCL 0.4 MG CAP.ER.24H (FP) PO SCH (09:00)
--- NOTE | 2017-01-05 09:12 | PN ---
Physical Exam: SUBJECTIVE: Patient seen and examined this AM. States he is more calm. CIWA 3 for tremors. Nurse states pt was agitated yesterday. Given Ativan 1g x1. No CP, no SOB, no anxiety/agitation, no visual/tactile disturbances, no nausea/ vomitting, no headache. OBJECTIVE: Vital Signs Period Temp Pulse Resp BP Sys/Spangler Pulse Ox Last 24 Hr 97.6 F-99.1 F 88-114 18-20 148-156/78-92 GENERAL: AAOx3, NAD, no labored repsirations, resting tremors, has bev vest + limb restraints untied. HEENT: PERRLA, EOMi w/ horizontal nystagmus; facial bruise improing; dry mucous membranes CV: S1, S2, RRR, 3/6 sys murmur at the LLSB Lung: CTABL, no wheezes ABD: Soft, NT, ND, RUQ bruising EXT: Pt has multiple scabs/bruises on knees, legs, abdomen, flank : Garza w/ yellow urine, no blood near meatus NEURO: CN 2-12 is intact, besides horizontal nystagmus. Sensation is equal and intact in face/body bilaterally, MSK 5+ in all extremities. Reflexes 1+ Laboratory Results - last 24 hr 01/05/17 06:30 Sodium 146 H Potassium 3.4 L Chloride 111 H Carbon Dioxide 26 Anion Gap 9 BUN 9 Creatinine 0.6 L Creat Clearance w eGFR > 60 Random Glucose 105 Calcium 8.5 Total Bilirubin 2.0 H AST 200 H D ALT 94 H Alkaline Phosphatase 102 Total Protein 6.9 Albumin 3.2 L Active Medications Generic Name Dose Route Start Last Admin Trade Name Markq PRN Reason Stop Dose Admin Diazepam 10 mg 01/04/17 19:58 Valium Injection - IVPUSH 01/05/17 19:57 ONCE PRN AGITATION Folic Acid 1 mg 01/02/17 10:00 01/04/17 10:08 Folic Acid - PO 1 mg DAILY THOMAS Administration Dextrose/Sodium Chloride 1,000 mls @ 50 mls/hr 01/04/17 11:18 D5-Ns - IV ASDIR THOMAS Lorazepam 1 mg 01/05/17 08:47 Ativan Injection - IVPUSH 01/06/17 08:46 ONCE PRN AGITATION Potassium Chloride 40 meq 01/05/17 09:30 K-Dur - PO 01/05/17 09:31 ONCE ONE Tamsulosin HCl 0.4 mg 01/04/17 08:30 01/05/17 09:00 Flomax - PO 0.4 mg DAILY@0830 [facility] Administration Thiamine HCl 250 mg 01/04/17 06:00 01/05/17 05:35 Vitamin B1 Injection - IVPB 250 mg DAILY@0600 [facility] Administration ASSESSMENT/PLAN: Pt is a 61yo M with history of chronic alcohol abuse who presented to the ER intoxicated and s/p mechanical fall w/ head trauma, no LOC. CIWA score on admission was 7. He was treated in the ED with thiamine, folate, librium in ED. He is on High dose IV thiamine 500m 6 doses --> IV Thiamine 250mg daily for 5 days for presumptive Wernicke # Alcohol Withdrawal - On librium protocol - Presumed Wernicke's due to nystagmus and unsteadiness - Day 2/5 of IV Thiamine 250 - PRN Valium + Ativan for agitation - Continue CIWA # Transaminitis - AST/ALT >2 - Liver U/S shows hepatocellular disease - Needs f/u o/p to monitor for progression # Urinary Retention - Pt has garza, will d/c Saturday - Continue flomax # FEN - Fluids: Increased fluids D5NS to 100cc/hr - Electrolytes: Continue to monitor - Nutrition: Regular diet # Prophylaxis - DVT: SCDs - GI: Not indicated - Deconditioning: PT on hold until patient is not withdrawing # Disposition - Monitor withdrawal, needs 3 more days of IV thiamine - Still ammenable to detox at [facility] after d/c Dr. Catracho Blackwood MD - Medicine PGY1 Visit type - Emergency Visit Emergency Visit: No - New Patient This patient is new to me today: No - Critical Care Critical Care patient: No - Discharge Referral Referred to [facility] Med P.C.: No
[2017-01-05] MEDS: FOLIC ACID 1 MG TABLET (FP) PO SCH (09:21)
--- NOTE | 2017-01-05 09:27 | PN ---
Teaching Attending Note Name of Resident: Catracho Blackwood ATTENDING PHYSICIAN STATEMENT I saw and evaluated the patient. I reviewed the resident's note and discussed the case with the resident. I agree with the resident's findings and plan as documented. SUBJECTIVE: no fever or chills . feels a little better . denies pain. over night was agitated and confused , OBJECTIVE: NAD , awake , alert , knows location , year , month , not date, knows his age . dry MM R fore head laceration CV: RRR, 3/6 SM at LLSB Lungs: CTAB Ext : no edema. has bruises and laceration on legs and knees.tremor on hands MS: bruises on flanks ASSESSMENT AND PLAN: 61 y/o man with h/o alcohol abuse , who presented with mechanical fall and was found to have alcohol withdrawal 1- Mechanical fall no LOC. 2-Severe ETOH withdrawal: - cont librium protocol. - change valium to PRN ATivan as it helped better yesterday - Cont IV thiamine for presumptive wernicke's. 250 mg daily x 5 days ( day 2) 3- Transaminitis :Improved . Monitor intermittently 3- Dehydation : with hypernatremia, due to Poor Po intake. increase rate of IVF repeat Na in am 4- Urinary retention ; blood tinged urine due to trauma - cont garza. will remove on Saturday - Cont flomax HLOC
[2017-01-05] MEDS ORDERED: POTASSIUM CHLORIDE TABS 20 MEQ TABLET.ER (FP) PO ONE ×2 (09:30→21:00)
[2017-01-05] MEDS ORDERED: LORazepam 2 MG/ML SDV VIAL ONE (14:11)
[2017-01-05] MEDS: DEXTROSE 5%-NORMAL SALINE 1,000 ML IV SCH (21:39)
[2017-01-06] MEDS: THIAMINE HCL 200 MG/2 ML VIAL IVPB SCH (06:05)
[2017-01-06 08:13] LABS: ANION GAP 10 (8-16); CALCIUM 8.3 mg/dL (8.5-10.1); CO2 26 mmol/L (21-32); GLUCOSE,RANDOM 102 mg/dL (74-106)
[2017-01-06 08:14] LABS: CREATININE 0.6 mg/dL (0.7-1.3)
[2017-01-06] MEDS: TAMSULOSIN HCL 0.4 MG CAP.ER.24H (FP) PO SCH (08:21)
[2017-01-06] MEDS: FOLIC ACID 1 MG TABLET (FP) PO SCH (10:15)
[2017-01-06] MEDS: POTASSIUM CHLORIDE TABS 20 MEQ TABLET.ER (FP) PO SCH ×2 (10:15→21:30)
[2017-01-06] MEDS ORDERED: chlordiazePOXIDE HCL 25 MG CAPSULE PO PRN (16:21)
--- NOTE | 2017-01-06 16:29 | PN ---
Progress Note (short form) - Note Progress Note: Subjective: no pain or SOB Objective: Vital Signs: Last Vital Signs Temp Pulse Resp BP Pulse Ox 98.6 F 89 20 131/79 98 01/06/17 15:32 01/06/17 15:32 01/06/17 15:32 01/06/17 15:32 01/05/17 21:00 Laboratory Results - last 24 hr 01/06/17 06:00 Sodium 143 Potassium 3.3 L Chloride 107 Carbon Dioxide 26 Anion Gap 10 BUN 6 L D Creatinine 0.6 L Random Glucose 102 Calcium 8.3 L Physical Exam: NAD , awake , alert , R fore head laceration CV: RRR, 3/6 SM at LLSB Lungs: CTAB Ext : no edema. has bruises and laceration on legs and knees.minimal tremor on hands MS: bruises on flanks ASSESSMENT AND PLAN: 61 y/o man with h/o alcohol abuse , who presented with mechanical fall and was found to have alcohol withdrawal 1- Mechanical fall no LOC. 2-Severe ETOH withdrawal: improved - cont librium protocol. 2 ore doses of 10 of librium - Add PRN librium - Cont IV thiamine for presumptive wernicke's. 250 mg daily x 5 days ( day 3) 3- Transaminitis :Improved . Monitor intermittently 3- Dehydation :improved Cont IVF 4- Urinary retention ; blood tinged urine due to trauma - cont garza. will remove on Saturday - Cont flomax HLOC Visit type - Emergency Visit Emergency Visit: Yes ED Registration Date: 01/02/17 Care time: The patient presented to the Emergency Department on the above date and was hospitalized for further evaluation of their emergent condition. - New Patient This patient is new to me today: No - Critical Care Critical Care patient: No
[2017-01-06] MEDS: chlordiazePOXIDE 5 MG CAPSULE PO SCH ×2 (17:02→21:30)
[2017-01-07] MEDS: DEXTROSE 5%-NORMAL SALINE 1,000 ML IV SCH ×2 (06:27→20:00)
[2017-01-07] MEDS: THIAMINE HCL 200 MG/2 ML VIAL IVPB SCH (06:28)
[2017-01-07] MEDS ORDERED: PT OWN MED DRAWER 7, Y5N ONE (08:10)
[2017-01-07] MEDS: TAMSULOSIN HCL 0.4 MG CAP.ER.24H (FP) PO SCH (08:13)
[2017-01-07 08:51] LABS: MAGNESIUM 1.6 mg/dL (1.8-2.4); PHOSPHOROUS 3.8 mg/dL (2.5-4.9)
[2017-01-07] MEDS: chlordiazePOXIDE 5 MG CAPSULE PO SCH ×2 (10:09→21:53)
[2017-01-07] MEDS: FOLIC ACID 1 MG TABLET (FP) PO SCH (10:10)
[2017-01-07] MEDS: NYSTATIN POWDER 100,000 UNITS/GM - 15 GM TOPICAL POWDER TP SCH (12:42)
--- NOTE | 2017-01-07 13:46 | PN ---
Physical Exam: SUBJECTIVE: Patient seen and examined this AM. No complaints, no CP, no SOB, no fevers, no chills. No aggressive behavior overnight. Mild tremulousness, sweating, anxiety. Garza out today OBJECTIVE: Vital Signs Period Temp Pulse Resp BP Sys/Spangler Pulse Ox Last 24 Hr 98.2 F-99.4 F 81-101 18-20 117-156/69-97 98-98 GENERAL: AAOx3, NAD, no labored repsirations, resting tremors, has bev vest + limb restraints untied. HEENT: PERRLA, EOMi w/ horizontal nystagmus; MM still slightly dry CV: S1, S2, RRR, 3/6 sys murmur at the LLSB Lung: CTABL, no wheezes ABD: Soft, NT, ND, RUQ bruising EXT: Pt has multiple scabs/bruises on knees, legs, abdomen, flank : Garza w/ danelle urine, satellte lesions in inguinal area NEURO: CN 2-12 is intact, horizontal nystagmus. Sensation is equal and intact in face/body bilaterally, MSK 5+ in all extremities. Reflexes 1+ Laboratory Results - last 24 hr 01/07/17 07:45 Potassium 3.5 Phosphorus 3.8 Magnesium 1.6 L Active Medications Generic Name Dose Route Start Last Admin Trade Name Freq PRN Reason Stop Dose Admin Chlordiazepoxide HCl 25 mg 01/06/17 16:21 Librium - PO Q6H PRN WITHDRAWAL(CONT SUBST) Chlordiazepoxide HCl 10 mg 01/06/17 16:30 01/07/17 10:09 Librium - PO 10 mg BID THOMAS Administration Folic Acid 1 mg 01/02/17 10:00 01/07/17 10:10 Folic Acid - PO 1 mg DAILY THOMAS Administration Dextrose/Sodium Chloride 1,000 mls @ 100 mls/hr 01/05/17 14:42 01/07/17 06:27 D5-Ns - IV 100 mls/hr ASDIR THOM[facility] Administration Magnesium Sulfate 2 gm 01/07/17 13:23 Magnesium Sulfate IVPB 01/07/17 13:24 ONCE ONE Nystatin 1 applic 01/07/17 12:00 01/07/17 12:42 Nystop Powder - TP 1 applic DAILY THOMAS Administration Tamsulosin HCl 0.4 mg 01/04/17 08:30 01/07/17 08:13 Flomax - PO 0.4 mg DAILY@0830 [facility] Administration Thiamine HCl 250 mg 01/04/17 06:00 01/07/17 06:28 Vitamin B1 Injection - IVPB 250 mg DAILY@0600 [facility] Administration ASSESSMENT/PLAN: Pt is a 61yo M with history of chronic alcohol abuse who presented to the ER intoxicated and s/p mechanical fall w/ head trauma, no LOC. CIWA score on admission was 7. He was treated in the ED with thiamine, folate, librium in ED. He is on High dose IV thiamine 500m 6 doses --> IV Thiamine 250mg daily for 5 days for presumptive Wernicke # Alcohol Withdrawal - On Librium 10mg and Librium PRN - Presumed Wernicke's due to nystagmus and unsteadiness - Day 4/5 of IV Thiamine 250 - PRN Valium + Ativan for agitation - Continue CIWA # Urinary Retention - D/c garza today, no UOP, bladder scan 200, will recheck at night - Continue flomax # Tinea Corporis of Groin - Nystatin powder daily # Hypomagenesemia - Given MgSO4 2g IVPB - Check Mg tomorrow # Transaminitis - AST/ALT >2 - Liver U/S shows hepatocellular disease - Needs f/u o/p to monitor for progression # FEN - Fluids: D5NS to 100cc/hr - Electrolytes: Continue to monitor - Nutrition: Regular diet, need someone to feed patient # Prophylaxis - DVT: SCDs - GI: Not indicated - Deconditioning: pt failed PT # Disposition - Monitor withdrawal, needs 1 more days of IV thiamine - Pt failed PT, likely ESTELA Dr. Catracho Blackwood MD - Medicine PGY1 Visit type - Emergency Visit Emergency Visit: No - New Patient This patient is new to me today: No - Critical Care Critical Care patient: No - Discharge Referral Referred to [facility] Med P.C.: No
[2017-01-07] MEDS ORDERED: MAGNESIUM SULF 50% (8.12 MEQ/2 ML-1 GM VIAL) IVPB ONE (14:00)
--- NOTE | 2017-01-07 15:10 | PN ---
Teaching Attending Note Name of Resident: Catracho Blackwood ATTENDING PHYSICIAN STATEMENT I saw and evaluated the patient. I reviewed the resident's note and discussed the case with the resident. I agree with the resident's findings and plan as documented. SUBJECTIVE: no fever or chills. slightly agitated overnight but improved form before OBJECTIVE: NAD , awake , alert , knows location and age , not year and date R forehead laceration . horizontal nystagmus CV: RRR, 3/6 SM at LLSB Lungs: CTAB Ext: no edema. has bruises and laceration on legs and knees.minimal tremor on hands ASSESSMENT AND PLAN: 61 y/o man with h/o alcohol abuse , who presented with mechanical fall and was found to have alcohol withdrawal 1- Mechanical fall no LOC. 2-Severe ETOH withdrawal: improved - Cont librium PRN - renew restraints - Cont IV thiamine for presumptive wernicke's. 250 mg daily x 5 days ( day 4) 3- Transaminitis : due to alcohol abuse. repat in am 3- Dehydation :improved Cont IVF 4- Urinary retention ; - Remove garza - Cont flomax HLOC pt is interested in alcohol rehab when ready for dc
[2017-01-08] MEDS ORDERED: PT OWN MED DRAWER 7, Y5N ONE (06:06)
[2017-01-08] MEDS: DEXTROSE 5%-NORMAL SALINE 1,000 ML IV SCH ×2 (06:37→19:53)
[2017-01-08] MEDS: THIAMINE HCL 200 MG/2 ML VIAL IVPB SCH (06:43)
[2017-01-08 08:03] LABS: ALBUMIN 2.8 g/dl (3.4-5.0)
[2017-01-08 08:09] LABS: BILIRUBIN,DIRECT 0.6 mg/dL (0.0-0.2); BILIRUBIN,TOTAL 1.4 mg/dL (0.2-1.0); TOT PROT 6.2 g/dl (6.4-8.2)
[2017-01-08 08:33] LABS: ANION GAP 8 (8-16); CALCIUM 8.1 mg/dL (8.5-10.1); CO2 26 mmol/L (21-32); CREATININE 0.6 mg/dL (0.7-1.3); GLUCOSE,RANDOM 105 mg/dL (74-106); MAGNESIUM 1.8 mg/dL (1.8-2.4)
[2017-01-08] MEDS: TAMSULOSIN HCL 0.4 MG CAP.ER.24H (FP) PO SCH (08:53)
[2017-01-08 10:03] LABS: URINE APPEARANCE CLEAR; URINE BILIRUBIN NEGATIVE (NEGATIVE); URINE BLOOD 2+ (NEGATIVE); URINE COLOR DKYELLOW; URINE GLUCOSE (UA) NEGATIVE (NEGATIVE); URINE KETONE NEGATIVE (NEGATIVE); URINE LEUK ESTERASE TRACE (NEGATIVE); URINE NITRITE NEGATIVE (NEGATIVE); URINE PROTEIN NEGATIVE (NEGATIVE); URINE UROBILINOGEN 4.0 E.U/dl mg/dL (0.2-1.0)
[2017-01-08] MEDS: FOLIC ACID 1 MG TABLET (FP) PO SCH (11:06)
[2017-01-08] MEDS: chlordiazePOXIDE 5 MG CAPSULE PO SCH ×2 (11:06→21:53)
[2017-01-08 11:13] LABS: URINE BACTERIA RARE /hpf (NONE SEEN); URINE MUCUS RARE; URINE RBC 35 /hpf (0-3); URINE WBC 2 /hpf (3-5)
[2017-01-08] MEDS ORDERED: POTASSIUM CHLORIDE TABS 20 MEQ TABLET.ER (FP) PO ONE (13:15)
[2017-01-08] MEDS: NYSTATIN POWDER 100,000 UNITS/GM - 15 GM TOPICAL POWDER TP SCH (14:17)
--- NOTE | 2017-01-08 14:46 | PN ---
Physical Exam: SUBJECTIVE: Patient seen and examined this AM. Looks much better today. No CP, no SOB, no agitations, no hallucinations. Pt failed voiding trial last night, garza reinserted. Pt was not agitated last night, did not need Ativan OBJECTIVE: Vital Signs Period Temp Pulse Resp BP Sys/Spangler Pulse Ox Last 24 Hr 98.2 F-98.8 F 82-91 18-21 136-152/80-91 98 GENERAL: AAOx3, NAD, no labored repsirations, resting tremors, has bev vest + limb restraints untied. HEENT: PERRLA, EOMi w/ very minimal horizontal nystagmus; MM still slightly dry CV: S1, S2, RRR, 3/6 sys murmur at the LLSB Lung: CTABL, no wheezes ABD: Soft, NT, ND, RUQ bruising EXT: Pt has multiple scabs/bruises on knees, legs, abdomen, flank : Garza w/ danelle urine, satellte lesions in inguinal area NEURO: CN 2-12 is intact, very minimal horizontal nystagmus. Sensation is equal and intact in face/body bilaterally, MSK 5+ in all extremities. Reflexes 1+ Laboratory Results - last 24 hr 01/08/17 01/08/17 01/08/17 06:30 06:30 08:45 Sodium 141 Potassium 3.1 L Chloride 107 Carbon Dioxide 26 Anion Gap 8 BUN 5 L Creatinine 0.6 L Random Glucose 105 Calcium 8.1 L Magnesium 1.8 Total Bilirubin 1.4 H D Direct Bilirubin 0.6 H AST 71 H D ALT 59 D Alkaline Phosphatase 88 Total Protein 6.2 L Albumin 2.8 L Urine Color Dkyellow Urine Appearance Clear Urine pH 6.0 Urine Protein Negative Urine Glucose (UA) Negative Urine Ketones Negative Urine Blood 2+ H Urine Nitrite Negative Urine Bilirubin Negative Urine Urobilinogen 4.0 e.u/dl Ur Leukocyte Esterase Trace Urine RBC 35 Urine WBC 2 Ur Epithelial Cells Rare Urine Bacteria Rare Urine Mucus Rare Active Medications Generic Name Dose Route Start Last Admin Trade Name Freq PRN Reason Stop Dose Admin Chlordiazepoxide HCl 25 mg 01/06/17 16:21 Librium - PO Q6H PRN WITHDRAWAL(CONT SUBST) Chlordiazepoxide HCl 10 mg 01/06/17 16:30 01/08/17 11:06 Librium - PO 10 mg BID THOMAS Administration Folic Acid 1 mg 01/02/17 10:00 01/08/17 11:06 Folic Acid - PO 1 mg DAILY THOMAS Administration Dextrose/Sodium Chloride 1,000 mls @ 100 mls/hr 01/05/17 14:42 01/08/17 06:37 D5-Ns - IV 100 mls/hr ASDIR THOMAS Administration Nystatin 1 applic 01/07/17 12:00 01/08/17 14:17 Nystop Powder - TP 1 applic DAILY THOMAS Administration Tamsulosin HCl 0.8 mg 01/09/17 08:30 Flomax - PO DAILY@0830 [facility] Thiamine HCl 250 mg 01/04/17 06:00 01/08/17 06:43 Vitamin B1 Injection - IVPB 250 mg DAILY@0600 THOMAS Administration ASSESSMENT/PLAN: Pt is a 61yo M with history of chronic alcohol abuse who presented to the ER intoxicated and s/p mechanical fall w/ head trauma, no LOC. CIWA score on admission was 7. He was treated in the ED with thiamine, folate, librium in ED. He is on High dose IV thiamine 500m 6 doses --> IV Thiamine 250mg daily for 5 days for presumptive Wernicke # Alcohol Withdrawal - On Librium PRN - Last day of IV thiamine 250 - PRN Valium + Ativan for agitation, but pt has not needed last night - Pt ammenable for drug rehab but needs SNF first # Urinary Retention - Pt failed voiding trial - Unsure of why patient is retaining, UA shows no infection - Continue flomax - Will need uro followup outpatient # Tinea Corporis of Groin - Nystatin powder daily # Transaminitis - improved - Liver U/S shows hepatocellular disease - Needs f/u o/p to monitor for progression # FEN - Fluids: D5NS to 100cc/hr - Electrolytes: Repleted K+ today f/u tmrw - Nutrition: Regular diet # Prophylaxis - DVT: SCDs - GI: Not indicated - Deconditioning: pt failed PT # Disposition - Since patient failed PT and needs garza, pt needs SNF - SW aware and working on SNF, likely d/c tomorrow Dr. Catracho Blackwood MD - Medicine PGY1 Visit type - Emergency Visit Emergency Visit: No - New Patient This patient is new to me today: No - Critical Care Critical Care patient: No - Discharge Referral Referred to [facility] No
--- NOTE | 2017-01-08 15:35 | PN ---
Teaching Attending Note Name of Resident: Catracho Blackwood ATTENDING PHYSICIAN STATEMENT I saw and evaluated the patient. I reviewed the resident's note and discussed the case with the resident. I agree with the resident's findings and plan as documented. SUBJECTIVE: no fever or chills , has no abd pain , no ACOSTA , no events over night OBJECTIVE: NAD , awake , alert , knows location and age, not year and date R forehead laceration. No nystagmus CV: RRR, 3/6 SM at LLSB Lungs: CTAB Ext: no edema. has bruises and laceration on legs and knees.minimal tremor on hands ASSESSMENT AND PLAN: 61 y/o man with h/o alcohol abuse , who presented with mechanical fall and was found to have alcohol withdrawal 1- Mechanical fall no LOC. 2-Severe ETOH withdrawal: much improved - Cont librium PRN only - Dc restrains - Last day of IV thiamine for presumptive wernicke's. Nystagmus has resolved. 3- Transaminitis : due to alcohol induced hepatitis. i mproved LFTS 3- Dehydation :improved Cont IVF , once PO intake improves can dc IVF 4- Urinary retention ; no evidence of UTI on UA . had to reinsert garza yesterday increase flomax cont garza , might need to be dc on it and f/u with uro Did poorly with PT, will need physical rehab at a facility . ( after that he is interested in alcohol rehab )
[2017-01-09] MEDS: THIAMINE HCL 200 MG/2 ML VIAL IVPB SCH (06:05)
[2017-01-09] MEDS: DEXTROSE 5%-NORMAL SALINE 1,000 ML IV SCH (06:18)
--- NOTE | 2017-01-09 07:43 | PN ---
Physical Exam: SUBJECTIVE: Patient seen and examined this AM. Complains of headache, not on pain meds. No CP, no SOB, no fevers, no chills. No anxiety, not agitated, no hallucinations. OBJECTIVE: Vital Signs Period Temp Pulse Resp BP Sys/Spangler Pulse Ox Last 24 Hr 97.6 F-98.8 F 83-92 18-20 141-150/76-76 96-98 GENERAL: AAOx3, NAD, no labored repsirations, no tremosr HEENT: PERRLA, EOMi w/ very minimal horizontal nystagmus; MM still slightly dry CV: S1, S2, RRR, 3/6 sys murmur at the LLSB Lung: CTABL, no wheezes ABD: Soft, NT, ND, RUQ bruising EXT: Pt has multiple scabs/bruises on knees, legs, abdomen, flank : Garza w/ danelle urine, satellte lesions in inguinal area NEURO: CN 2-12 is intact, very minimal horizontal nystagmus. Sensation is equal and intact in face/body bilaterally, MSK 5+ in all extremities. Reflexes 1+ Laboratory Results - last 24 hr 01/08/17 01/08/17 01/08/17 06:30 06:30 08:45 Sodium 141 Potassium 3.1 L Chloride 107 Carbon Dioxide 26 Anion Gap 8 BUN 5 L Creatinine 0.6 L Random Glucose 105 Calcium 8.1 L Magnesium 1.8 Total Bilirubin 1.4 H D Direct Bilirubin 0.6 H AST 71 H D ALT 59 D Alkaline Phosphatase 88 Total Protein 6.2 L Albumin 2.8 L Urine Color Dkyellow Urine Appearance Clear Urine pH 6.0 Ur Specific [place] 1.020 Urine Protein Negative Urine Glucose (UA) Negative Urine Ketones Negative Urine Blood 2+ H Urine Nitrite Negative Urine Bilirubin Negative Urine Urobilinogen 4.0 e.u/dl Ur Leukocyte Esterase Trace Urine RBC 35 Urine WBC 2 Ur Epithelial Cells Rare Urine Bacteria Rare Urine Mucus Rare Active Medications Generic Name Dose Route Start Last Admin Trade Name Freq PRN Reason Stop Dose Admin Chlordiazepoxide HCl 25 mg 01/06/17 16:21 Librium - PO Q6H PRN WITHDRAWAL(CONT SUBST) Chlordiazepoxide HCl 10 mg 01/06/17 16:30 01/08/17 21:53 Librium - PO 10 mg BID THOMAS Administration Folic Acid 1 mg 01/02/17 10:00 01/08/17 11:06 Folic Acid - PO 1 mg DAILY THOMAS Administration Dextrose/Sodium Chloride 1,000 mls @ 100 mls/hr 01/05/17 14:42 01/09/17 06:18 D5-Ns - IV 100 mls/hr ASDIR THOMAS Administration Nystatin 1 applic 01/07/17 12:00 01/08/17 14:17 Nystop Powder - TP 1 applic DAILY THOMAS Administration Tamsulosin HCl 0.8 mg 01/09/17 08:30 Flomax - PO DAILY@0830 [facility] Thiamine HCl 250 mg 01/04/17 06:00 01/09/17 06:05 Vitamin B1 Injection - IVPB 250 mg DAILY@0600 [facility] Administration ASSESSMENT/PLAN: Pt is a 61yo M with history of chronic alcohol abuse who presented to the ER intoxicated and s/p mechanical fall w/ head trauma, no LOC. CIWA score on admission was 7. He was treated in the ED with thiamine, folate, librium in ED. He is on High dose IV thiamine 500m 6 doses --> IV Thiamine 250mg daily for 5 days for presumptive Wernicke # Alcohol Withdrawal - On Librium 10mg BID + PRN - Completed Thiamine - PRN Valium + Ativan for agitation, but pt has not needed last night - Pt ammenable for drug rehab but needs SNF first # Urinary Retention - Pt failed voiding trial - Unsure of why patient is retaining, UA shows no infection - Continue flomax 0.8 - Will need uro followup outpatient # Tinea Corporis of Groin - Nystatin powder daily # Transaminitis - improved - Liver U/S shows hepatocellular disease - Needs f/u o/p to monitor for progression # FEN - Fluids: D5NS to 100cc/hr - Electrolytes: Repleted K+ today f/u tmrw - Nutrition: Regular diet # Prophylaxis - DVT: SCDs - GI: Not indicated - Deconditioning: pt failed PT # Disposition - Since patient failed PT and needs garza, pt needs SNF - [employer] aware and working on SNF, likely d/c today Dr. Catracho Blackwood MD - Medicine PGY1
[2017-01-09 07:54] LABS: ANION GAP 7 (8-16); CALCIUM 8.4 mg/dL (8.5-10.1); CO2 27 mmol/L (21-32); CREATININE 0.5 mg/dL (0.7-1.3); GLUCOSE,RANDOM 91 mg/dL (74-106); MAGNESIUM 1.7 mg/dL (1.8-2.4)
[2017-01-09] MEDS ORDERED: TAMSULOSIN HCL 0.4 MG CAP.ER.24H (FP) PO SCH (08:30)
[2017-01-09] MEDS ORDERED: MAGNESIUM SULF 50% (8.12 MEQ/2 ML-1 GM VIAL) IVPB ONE (08:45)
[2017-01-09] MEDS ORDERED: amLODIPine BESYLATE 5 MG TABLET (FP) PO SCH (11:15)
--- NOTE | 2017-01-09 11:26 | DS ---
Physical Exam: SUBJECTIVE: Patient seen and examined this AM. Complains of headache, not on pain meds. No CP, no SOB, no fevers, no chills. No anxiety, not agitated, no hallucinations. OBJECTIVE: Vital Signs Period Temp Pulse Resp BP Sys/Spangler Pulse Ox Last 24 Hr 97.6 F-98.8 F 83-92 18-20 141-150/76-76 96 PHYSICAL EXAM GENERAL: AAOx3, NAD, no labored repsirations, no tremosr HEENT: PERRLA, EOMi w/ very minimal horizontal nystagmus; MM still slightly dry CV: S1, S2, RRR, 3/6 sys murmur at the LLSB Lung: CTABL, no wheezes ABD: Soft, NT, ND, RUQ bruising EXT: Pt has multiple scabs/bruises on knees, legs, abdomen, flank : Garza w/ danelle urine, satellite lesions in inguinal area NEURO: CN 2-12 is intact, very minimal horizontal nystagmus. Sensation is equal and intact in face/body bilaterally, MSK 5+ in all extremities. Reflexes 1+ LABS Laboratory Last Values WBC 6.3 K/mm3 (4.0-10.0) 01/01/17 16:45 RBC 4.38 M/mm3 (4.00-5.60) 01/01/17 16:45 Hgb 11.9 GM/dL (11.7-16.9) 01/01/17 16:45 Hct 36.1 % (35.4-49) 01/01/17 16:45 MCV 82.4 fl (80-96) 01/01/17 16:45 MCH 27.0 pg (25.7-33.7) 01/01/17 16:45 MCHC 32.8 g/dl (32.0-35.9) 01/01/17 16:45 RDW 21.0 % (11.9-15.9) H 01/01/17 16:45 Plt Count 112 K/MM3 (134-434) L 01/01/17 16:45 MPV 8.9 fl (7.5-11.1) 01/01/17 16:45 Neutrophils % 69.4 % (42.8-82.8) 01/01/17 16:45 Lymphocytes % 15.5 % (8-40) 01/01/17 16:45 Monocytes % 11.3 % (3.8-10.2) H 01/01/17 16:45 Eosinophils % 1.5 % (0-4.5) 01/01/17 16:45 Basophils % 2.3 % (0-2.0) H 01/01/17 16:45 Polychromasia 1+ 01/01/17 16:45 Anisocytosis 2+ 01/01/17 16:45 Sodium 138 mmol/L (136-145) 01/09/17 06:35 Potassium 3.5 mmol/L (3.5-5.1) 01/09/17 06:35 Chloride 104 mmol/L (98-107) 01/09/17 06:35 Carbon Dioxide 27 mmol/L (21-32) 01/09/17 06:35 Anion Gap 7 (8-16) L 01/09/17 06:35 BUN 5 mg/dL (7-18) L 01/09/17 06:35 Creatinine 0.5 mg/dL (0.7-1.3) L 01/09/17 06:35 Creat Clearance w eGFR > 60 (>60) 01/05/17 06:30 Random Glucose 91 mg/dL (74-106) 01/09/17 06:35 Calcium 8.4 mg/dL (8.5-10.1) L 01/09/17 06:35 Phosphorus 3.8 mg/dL (2.5-4.9) 01/07/17 07:45 Magnesium 1.7 mg/dL (1.8-2.4) L 01/09/17 06:35 Total Bilirubin 1.4 mg/dL (0.2-1.0) H D 01/08/17 06:30 Direct Bilirubin 0.6 mg/dL (0.0-0.2) H 01/08/17 06:30 AST 71 U/L (15-37) H D 01/08/17 06:30 ALT 59 U/L (12-78) D 01/08/17 06:30 Alkaline Phosphatase 88 U/L (45-117) 01/08/17 06:30 Total Protein 6.2 g/dl (6.4-8.2) L 01/08/17 06:30 Albumin 2.8 g/dl (3.4-5.0) L 01/08/17 06:30 Urine Color Dkyellow 01/08/17 08:45 Urine Appearance Clear 01/08/17 08:45 Urine pH 6.0 (5.0-8.0) 01/08/17 08:45 Ur Specific [place] 1.020 (1.005-1.025) 01/08/17 08:45 Urine Protein Negative (NEGATIVE) 01/08/17 08:45 Urine Glucose (UA) Negative (NEGATIVE) 01/08/17 08:45 Urine Ketones Negative (NEGATIVE) 01/08/17 08:45 Urine Blood 2+ (NEGATIVE) H 01/08/17 08:45 Urine Nitrite Negative (NEGATIVE) 01/08/17 08:45 Urine Bilirubin Negative (NEGATIVE) 01/08/17 08:45 Urine Urobilinogen 4.0 e.u/dl mg/dL (0.2-1.0) 01/08/17 08:45 Ur Leukocyte Esterase Trace (NEGATIVE) 01/08/17 08:45 Urine RBC 35 /hpf (0-3) 01/08/17 08:45 Urine WBC 2 /hpf (3-5) 01/08/17 08:45 Ur Epithelial Cells Rare /hpf (FEW) 01/08/17 08:45 Urine Bacteria Rare /hpf (NONE SEEN) 01/08/17 08:45 Urine Mucus Rare 01/08/17 08:45 Alcohol, Quantitative 326.9 mg/dl (0-5) H* 01/01/17 18:35 HOSPITAL COURSE: Date of Admission:01/02/17 Date of Discharge: 01/09/17 Mr. Nieves is a 61yo M with history of chronic alcohol abuse who presented to the Emergency Department intoxicated and s/p mechanical fall w/ head trauma, and without loss of consciousness. # S/p Mechanical Fall - The patient's initial Head CT on admission was negative for intracranial bleeds. # Alcohol Withdrawal - The patient was put on folic acid, a librium protocol, and Ativan and Valium as needed. The patient progressively needed less frequent doses of short acting benzos, and did not require any on the day of discharge. Since the patient presented with nystagmus and unsteadiness, the patient was put on a 1 week high dose thiamine treatment protocol for preventing Wernicke's Encephalopathy. On the day of discharge, the patient was less unsteady, and the nystagmus has reduced to a minimum. The patient will be transferred to a subacute rehabilitation facility for further physical therapy. He will be discharged on folate, thiamine, B-complex. # Urinary Retention - The patient endorsed symptoms of BPH, and needed a garza catheter for a couple of days. He was also started on Flomax 0.8mg QD. He failed a voiding trial in the hospital, and will followup with Urology (Dr. Wilson) as an outpatient for a second voiding trial and more tests. Urine analysis showed no infection # Other - HTN - The patient was not on any blood pressure medications, and will be discharged with Norvasc 5mg daily - Transaminitis - The patient has chronic transaminitis with AST/ALT >2.0. An ultrasound of the liver showed hepatocellular changes likely from alcoholic liver disease. The patient will followup with a primary doctor at his rehabilitation facility for further management - Tinea Corporis of Groin - Continue Nystatin powder daily in the groin The patient is aware of the hospital course and agrees with the plan to transfer to SNF Minutes to complete discharge: 55 <Catracho Blackwood - Last Filed: 01/09/17 15:52> Physical Exam: SUBJECTIVE: Patient seen and examined <Dayan Cash - Last Filed: 01/14/17 16:38> Discharge Summary Reason For Visit: ALCOHOL WITHDRAWAL SYNDROME Current Active Problems Alcohol dependence with uncomplicated withdrawal (Acute) Alcohol withdrawal (Acute) Head injury (Acute) - Home Medications Comprehensive Discharge Medication List: Ambulatory Orders Amlodipine Besylate [Norvasc -] 5 mg PO DAILY tablet 01/09/17 Folic Acid - 1 mg PO DAILY tablet 01/09/17 Nystatin Powder [Nystop Powder -] 1 applic TP DAILY applic 01/09/17 Tamsulosin HCl [Flomax -] 0.8 mg PO DAILY@0830 tab 01/09/17 Thiamine HCl [Vitamin B1 -] 100 mg PO BID tablet 01/09/17 <Catracho Blackwood - Last Filed: 01/09/17 15:52> - Home Medications Comprehensive Discharge Medication List: Ambulatory Orders Amlodipine Besylate [Norvasc -] 5 mg PO DAILY tablet 01/09/17 Folic Acid - 1 mg PO DAILY tablet 01/09/17 Nystatin Powder [Nystop Powder -] 1 applic TP DAILY applic 01/09/17 Tamsulosin HCl [Flomax -] 0.8 mg PO DAILY@0830 tab 01/09/17 Thiamine HCl [Vitamin B1 -] 100 mg PO BID tablet 01/09/17 Vitamin B Complex 1 each PO DAILY #30 capsule 01/09/17 <Dayan Cash - Last Filed: 01/14/17 16:38> Condition: Improved - Instructions Diet, Activity, Other Instructions: - Please continue to NOT drink alcohol, it is very dangerous - You are going to a subacute rehabilitation nursing facility to improve your strength - You must drink a lot of fluids so that you do not become dehydrated - Avoid Tylenol because of your liver enzymes - FOLLOWUPS: - Followup with Urology to take out your garza catheter for another voiding trial - You will have a primary care doctor in your rehab, they will follow your elevated liver enzymes - NEW MEDICATIONS: - You were not on any medications at home, continue the following meds that we gave you in the hospital: - Continue your daily folate and thiamine and Vitamin B complex - Continue your Norvasc 5mg daily for your blood pressure - Continue Flomax 0.8mg daily for your enlarged prostate - Continue your nystatin powder for your fungal infection in the groin Referrals: Luis Ordoñez MD [Primary Care Provider] - 1 Week Zana Wilson MD [Staff Physician] - 1 Week (Patient failed voiding trial in the hospital. On flomax 0.8 QD. ) Disposition: CARE HOME FACILITY This patient is new to me today: No Emergency Visit: No Critical Care patient: No - Discharge Referral Referred to [facility] No <Catracho Blackwood - Last Filed: 01/09/17 15:52>
[2017-01-09] MEDS: FOLIC ACID 1 MG TABLET (FP) PO SCH (11:27)
[2017-01-09] MEDS: NYSTATIN POWDER 100,000 UNITS/GM - 15 GM TOPICAL POWDER TP SCH (11:27)
[2017-01-09 14:12] VITALS: BP 128/70; PULSE 97; TEMP 98.4
--- NOTE | 2017-01-09 14:46 | PN ---
Teaching Attending Note Name of Resident: Catracho Blackwood ATTENDING PHYSICIAN STATEMENT I saw and evaluated the patient. I reviewed the resident's note and discussed the case with the resident. I agree with the resident's findings and plan as documented. SUBJECTIVE: Patient has no further headache. Blood pressure better controlled post Norvasc. OBJECTIVE: Vital Signs Temperature 98.4 F 01/09/17 14:00 Pulse Rate 97 H 01/09/17 14:00 Respiratory Rate 20 01/09/17 14:00 Blood Pressure 128/70 01/09/17 14:00 O2 Sat by Pulse Oximetry (%) 96 01/09/17 09:00 CBCD WBC 6.3 K/mm3 (4.0-10.0) 01/01/17 16:45 RBC 4.38 M/mm3 (4.00-5.60) 01/01/17 16:45 Hgb 11.9 GM/dL (11.7-16.9) 01/01/17 16:45 Hct 36.1 % (35.4-49) 01/01/17 16:45 MCV 82.4 fl (80-96) 01/01/17 16:45 MCHC 32.8 g/dl (32.0-35.9) 01/01/17 16:45 RDW 21.0 % (11.9-15.9) H 01/01/17 16:45 Plt Count 112 K/MM3 (134-434) L 01/01/17 16:45 MPV 8.9 fl (7.5-11.1) 01/01/17 16:45 CMP Sodium 138 mmol/L (136-145) 01/09/17 06:35 Potassium 3.5 mmol/L (3.5-5.1) 01/09/17 06:35 Chloride 104 mmol/L (98-107) 01/09/17 06:35 Carbon Dioxide 27 mmol/L (21-32) 01/09/17 06:35 Anion Gap 7 (8-16) L 01/09/17 06:35 BUN 5 mg/dL (7-18) L 01/09/17 06:35 Creatinine 0.5 mg/dL (0.7-1.3) L 01/09/17 06:35 Creat Clearance w eGFR > 60 (>60) 01/05/17 06:30 Random Glucose 91 mg/dL (74-106) 01/09/17 06:35 Calcium 8.4 mg/dL (8.5-10.1) L 01/09/17 06:35 Total Bilirubin 1.4 mg/dL (0.2-1.0) H D 01/08/17 06:30 AST 71 U/L (15-37) H D 01/08/17 06:30 ALT 59 U/L (12-78) D 01/08/17 06:30 Alkaline Phosphatase 88 U/L (45-117) 01/08/17 06:30 Total Protein 6.2 g/dl (6.4-8.2) L 01/08/17 06:30 Albumin 2.8 g/dl (3.4-5.0) L 01/08/17 06:30 Current Medications Generic Name Dose Route Start Last Admin Trade Name Freq PRN Reason Stop Dose Admin Amlodipine Besylate 5 mg 01/09/17 11:15 01/09/17 11:27 Norvasc - PO 5 mg DAILY THOMAS Administration Chlordiazepoxide HCl 25 mg 01/06/17 16:21 Librium - PO Q6H PRN WITHDRAWAL(CONT SUBST) Folic Acid 1 mg 01/02/17 10:00 01/09/17 11:27 Folic Acid - PO 1 mg DAILY THOMAS Administration Dextrose/Sodium Chloride 1,000 mls @ 100 mls/hr 01/05/17 14:42 01/09/17 06:18 D5-Ns - IV 100 mls/hr ASDIR THOMAS Administration Nystatin 1 applic 01/07/17 12:00 01/09/17 11:27 Nystop Powder - TP 1 applic DAILY THOMAS Administration Tamsulosin HCl 0.8 mg 01/09/17 08:30 01/09/17 08:52 Flomax - PO 0.8 mg DAILY@0830 THOMAS Administration Thiamine HCl 100 mg 01/09/17 22:00 Vitamin B1 - PO BID [facility] Home Medications Medication Instructions Recorded Amlodipine Besylate [Norvasc -] 5 mg PO DAILY tablet 01/09/17 Folic Acid - 1 mg PO DAILY tablet 01/09/17 Nystatin Powder [Nystop Powder -] 1 applic TP DAILY applic 01/09/17 Tamsulosin HCl [Flomax -] 0.8 mg PO DAILY@0830 tab 01/09/17 Thiamine HCl [Vitamin B1 -] 100 mg PO BID tablet 01/09/17 Vitamin B Complex 1 each PO DAILY #30 capsule 01/09/17 Left elbow: positivie for dried up scab of the laceration, no swelling , no edema, no erythema ASSESSMENT AND PLAN: 61 y/o man with h/o alcohol abuse , who presented with mechanical fall and was found to have alcohol withdrawal # HTN uncontrolled on Norvasc ,started the patient on Norvasc 5mg po daily in the hospital today. # Mechanical fall no LOC. #Severe ETOH withdrawal: much improved ,completed librium. s/p IV thiamine for presumptive wernicke's. Nystagmus has resolved. will continue with po thiamine 100mg po bid.Bcomplex vitamin # Transaminitis : due to alcohol induced hepatitis. improving. # Dehydation :improved s/p IVF # Acute urinary retention ; no evidence of UTI on UA . had to reinsert garza yesterday , increased flomax to 0.8mg , Patient is being discharged with garza. will follow with urology as an outpatient. PT evaluation was poor, is being discharged to rehab.
[2017-01-09] MEDS ORDERED: THIAMINE HCL 100 MG TABLET (FP) PO SCH (22:00)
== END 2017-01-09 17:02 | DRG 775 ==
LOC: JER 15:03 → JERBED 01-02 01:59 → J6S 01-02 05:20
PROVIDERS: ADMIT Internal Medicine; ATTEND Internal Medicine
PROC: 0T9B30Z Drainage of Bladder with Drainage Device, Percutaneous Approach (ICD-10-PCS; principal; 2017-01-02)
DX: F10.230 Alcohol dependence with withdrawal, uncomplicated (principal); S09.8XXA Other specified injuries of head, initial encounter; F10.220 Alcohol dependence with intoxication, uncomplicated; R74.0 Nonspecific elevation of levels of transaminase and lactic acid dehydrogenase [LDH]; S00.83XA Contusion of other part of head, initial encounter; S50.312A Abrasion of left elbow, initial encounter; W18.30XA Fall on same level, unspecified, initial encounter; Y93.89 Activity, other specified; Y92.89 Other specified places as the place of occurrence of the external cause; Y99.8 Other external cause status; F17.210 Nicotine dependence, cigarettes, uncomplicated; N40.1 Benign prostatic hyperplasia with lower urinary tract symptoms; R33.8 Other retention of urine; E87.0 Hyperosmolality and hypernatremia; E86.0 Dehydration; B35.4 Tinea corporis; E83.42 Hypomagnesemia; Y90.8 Blood alcohol level of 240 mg/100 ml or more; R26.81 Unsteadiness on feet
CPT/HCPCS: 36415; 70450-TC; 71010-TC; 76705-TC; 80048; 80053; 80076; 80307; 81003; 81015; 83735; 84100; 84132; 85025; 90715; 93005; 93010; 97116-GP; 97162-GP; 99284-25

== ENCOUNTER 2017-07-17 12:59 | Inpatient (IN) | payer OTHER ==
[~2017-07-17 12:59] MED LIST: chlordiazePOXIDE HCL 25 MG CAPSULE PO SCH
[2017-07-17] MEDS ORDERED: FOLIC ACID INJECTION - 1 MG, THIAMINE HCL 100 MG, MULTIVIT INJECTION ADULT 10 ML in SOD... IVPB ONE ×2 (14:55→15:58)
--- NOTE | 2017-07-17 15:31 | PDOC ---
Attending Attestation - Resident Resident Name: Andrew Dowd - ED Attending Attestation I have performed the following: I have examined & evaluated the patient, The case was reviewed & discussed with the resident, I agree w/resident's findings & plan, Exceptions are as noted - HPI HPI: 07/17/17 23:57 The patient is a 62 year old male, with a significant past medical history of chronic EtOH abuse, who presents to the emergency department with fall after drinking 6 beers. The patient reports drinking 6 beers and feeling weak in his legs and falling while outside his house. He states he fell backwards onto his behind, denies headstrike or LOC. Complaining only of back pain at the time. He denies any recent fevers, chills, headache or dizziness. He denies any recent nausea, vomit, diarrhea or constipation. He denies any recent chest pain or shortness of breath. He denies any recent dysuria, frequency, urgency or hematuria. He reports drinking 12 beers per day for the last 20 years. Allergies: NKA Past surgical history: None reported. Social History: Nonsmoker. Denies EtOH use and recreational drug use. - Physicial Exam PE: 07/17/17 23:57 GENERAL: Awake, alert, and fully oriented, in no acute distress +AOB HEAD: No signs of trauma EYES: PERRLA, EOMI, sclera anicteric, conjunctiva clear ENT: Auricles normal inspection, hearing grossly normal, nares patent, oropharynx clear without exudates. Moist mucosa NECK: Normal ROM, supple, no lymphadenopathy, JVD, or masses LUNGS: Breath sounds equal, clear to auscultation bilaterally. No wheezes, and no crackles HEART: Regular rate and rhythm, normal S1 and S2, no murmurs, rubs or gallops ABDOMEN: Soft, nontender, normoactive bowel sounds. No guarding, no rebound. No masses. EXTREMITIES: Normal range of motion, no edema. No clubbing or cyanosis. No cords , erythema, or tenderness. No CVAT BACK: No midline spinal tenderness in cervical/thoracic/lumbar region. + paraspinal lumbar ttp. NEUROLOGICAL: Normal speech, cranial nerves intact, negative pronator drift, 5/ 5 strength in all 4 extremities, normal sensation to light touch in all 4 extremities, normal cerebellar exam, unsteady gait, normal reflexes and tone SKIN: Warm, Dry, normal turgor, no rashes or lesions noted. B/l flank ecchymosis L>R - Medical Decision Making 07/17/17 15:30 62-year-old male with a history of alcohol abuse, current smoker presents emergency Department after a fall while intoxicated. Vitals with mild tachycardia to 104. Exam with bilateral flank ecchymosis and mild paraspinal lumbar tenderness to palpation. We'll obtain a CTH, CT c-spine, CT scan of the abdomen and pelvis with IV contrast to rule out RP bleed. We'll also obtain labs and reassess. 07/17/17 18:59 Labs remarkable for ETOH level 295. CTH wnl. CTAP w contrast pending. Pt signed out to ON attending for further mgmt.
[2017-07-17] MEDS ORDERED: THIAMINE HCL 100 MG TABLET (FP) PO ONE (15:52)
--- NOTE | 2017-07-17 15:52 | PDOC ---
History of Present Illness - General Chief Complaint: Alcohol intoxication Stated Complaint: INTOX Time Seen by Provider: 07/17/17 13:52 History Source: Patient Exam Limitations: No Limitations - History of Present Illness Initial Comments: 07/17/17 15:58 62M with pmh of alcohol abuse presents to the ED after falling on his buttocks after drinking 5 beers. Claims that his legs felt weak, fell on his buttocks and couldn't get back up. No Obvious sings of trauma, no headaches, nausea, vomiting or dizziness, denies withdrawals signs, denies drug use. Brought in by EMS who found him on the floor Past History - Past Medical History Allergies/Adverse Reactions: Allergies Allergy/AdvReac Type Severity Reaction Status Date / Time Penicillins Allergy Severe Swelling Verified 07/17/17 13:11 Home Medications: Ambulatory Orders NK [No Known Home Medication] 07/17/17 COPD: No - Immunization History Immunization Up to Date: No - Suicide/Smoking/Psychosocial Hx Smoking History: Never smoked Have you smoked in the past 12 months: No Number of Cigarettes Smoked Daily: 15 Cigars Per Day: 0 Information on smoking cessation initiated: No Hx Alcohol Use: Yes Drug/Substance Use Hx: No Substance Use Type: Alcohol Hx Substance Use Treatment: No Review of Systems - Review of Systems Able to Perform ROS?: Yes Is the patient limited Danish proficient: No Constitutional: No: Symptoms Reported HEENTM: No: Symptoms Reported Respiratory: No: Symptoms reported Cardiac (ROS): No: Symptoms Reported ABD/GI: No: Symptoms Reported : No: Symptoms Reported Musculoskeletal: No: Symptoms Reported Integumentary: Yes: Symptoms Reported Neurological: Yes: Weakness *Physical Exam - Vital Signs Last Vital Signs Temp Pulse Resp BP Pulse Ox 98.3 F 102 H 20 157/82 96 07/17/17 13:12 07/17/17 13:12 07/17/17 13:12 07/17/17 13:12 07/17/17 13:12 - Physical Exam General Appearance: Yes: Disheveled, Alcohol on Breath (urine smell on clothes) HEENT: positive: Pharynx Normal. negative: Scleral Icterus (R), Scleral Icterus (L) Respiratory/Chest: positive: Lungs Clear, Normal Breath Sounds. negative: Chest Tender, Respiratory Distress Cardiovascular: positive: Regular Rhythm, S1, S2, Tachycardia Gastrointestinal/Abdominal: positive: Normal Bowel Sounds, Flat, Soft, Other ( Bilateral hematomas/ecchymosis on bilateral hips). negative: Tender Extremity: positive: Normal Capillary Refill, Normal Inspection, Normal Range of Motion Integumentary: positive: Normal Color, Dry, Warm ED Treatment Course - LABORATORY CBC & Chemistry Diagram: 07/17/17 15:26 07/17/17 15:26 - RADIOLOGY Radiology Studies Ordered: Category Date Time Status ABDOMEN & PELVIS CT WITH CONTR [CT] Stat CT Scan 07/17/17 15:16 Ordered Medical Decision Making - Medical Decision Making 07/17/17 19:13 Basic labs, etoh level banana bag infused Flank ecchymosis need to be ruled out as Brooks Gutierrez's sign. Abdominal and pelvis CT with contrast pending to r/o pancreatitis 07/17/17 19:15 Patient signed out to Dr. Mix *DC/Admit/Observation/Transfer Diagnosis at time of Disposition: Alcohol intoxication - Referrals - Patient Instructions - Post Discharge Activity
[2017-07-17] MEDS ORDERED: SODIUM CHLORIDE 1,000 ML IV STA (15:53)
[2017-07-17] MEDS ORDERED: MULTIVIT INJ. ADULT COMBO WITH VIT K 1 COMBO 10 ML VIAL IV ONE (15:54)
[2017-07-17 16:00] LABS: BASO % 1.4 % (0-2.0); EOS % 0.7 % (0-4.5); HEMOGLOBIN 11.3 GM/dL (11.7-16.9); LYMPH % 19.9 % (8-40); MCH 26.3 pg (25.7-33.7); MCHC 32.2 g/dl (32.0-35.9); MEAN CELL VOLUME 81.8 fl (80-96); MONO % 9.3 % (3.8-10.2); NEUT % 68.7 % (42.8-82.8); PLATELET COUNT 95 K/MM3 (134-434); RBC 4.29 M/mm3 (4.00-5.60); RDW 21.9 % (11.9-15.9); WHITE BLOOD COUNT 5.3 K/mm3 (4.0-10.0)
[2017-07-17 16:22] LABS: ALBUMIN 2.9 g/dl (3.4-5.0); ANION GAP 12 (8-16); BLOOD UREA NITROGEN 5 mg/dL (7-18); CALCIUM 7.7 mg/dL (8.5-10.1); CHLORIDE 98 mmol/L (98-107); CO2 25 mmol/L (21-32); CREATININE 0.7 mg/dL (0.7-1.3); GLUCOSE,RANDOM 89 mg/dL (74-106); SGPT/ALT 38 U/L (12-78); SODIUM 135 mmol/L (136-145)
[2017-07-17 16:24] LABS: ALK PHOS 242 U/L (45-117); BILIRUBIN,TOTAL 1.1 mg/dL (0.2-1.0); TOT PROT 7.6 g/dl (6.4-8.2)
[2017-07-17 16:27] LABS: POTASSIUM 3.5 mmol/L (3.5-5.1); SGOT/AST 115 U/L (15-37)
--- NOTE | 2017-07-17 20:51 | PDOC ---
*Physical Exam - Vital Signs Last Vital Signs Temp Pulse Resp BP Pulse Ox 98.3 F 102 H 20 157/82 96 07/17/17 13:12 07/17/17 13:12 07/17/17 13:12 07/17/17 13:12 07/17/17 13:12 - Physical Exam Comments: 07/17/17 20:49 General Appearance: Nourished. No Apparent Distress HEENT: EOMI, ZACHARIAH. No Pharyngeal Erythema, Tonsillar Exudate, Tonsillar Erythema Neck: No Cervical Lymphadenopathy Respiratory/Chest: Lungs Clear, Normal Breath Sounds. No Crackles, Rales, Rhonchi, Wheezing Cardiovascular: Regular Rhythm, Regular Rate. No Murmur, Gallops, Rubs Gastrointestinal/Abdominal: Normal Bowel Sounds, Soft. No Guarding, Rebound, Tenderness Musculoskeletal: No CVA Tenderness Extremity: Normal Capillary Refill Integumentary: Normal Color, Dry, Warm Neurologic: Fully Oriented, Alert, Normal Mood/Affect, Normal Response, ED Treatment Course - LABORATORY CBC & Chemistry Diagram: 07/17/17 15:26 07/17/17 15:26 - ADDITIONAL ORDERS Additional order review: Laboratory Results 07/17/17 07/17/17 15:26 15:26 Sodium 135 L Potassium 3.5 Chloride 98 Carbon Dioxide 25 Anion Gap 12 BUN 5 L Creatinine 0.7 D Creat Clearance w eGFR > 60 Random Glucose 89 Calcium 7.7 L Total Bilirubin 1.1 H D AST 115 H D ALT 38 D Alkaline Phosphatase 242 H D Total Protein 7.6 D Albumin 2.9 L Alcohol, Quantitative 295.0 H* 07/17/17 15:26 RBC 4.29 MCV 81.8 MCHC 32.2 RDW 21.9 H MPV 9.0 Neutrophils % 68.7 Lymphocytes % 19.9 D Monocytes % 9.3 Eosinophils % 0.7 Basophils % 1.4 - Medications Given in the ED: ED Medications Discontinued Medications Generic Name Dose Route Start Last Admin Trade Name Freq PRN Reason Stop Dose Admin Folic Acid 1 mg/ Thiamine HCl 1,000 mls @ 125 mls/hr 07/17/17 14:55 07/17/17 16:42 100 mg/ Multivitamins/Minerals IVPB 07/17/17 22:54 Not Given 10 ml/ Sodium Chloride ONCE ONE Sodium Chloride 1,000 mls @ 1,000 mls/hr 07/17/17 15:53 02/21/18 16:32 Normal Saline - IV 07/17/17 16:52 Not Given ASDIR STA Multivitamins/Minerals 10 ml 07/17/17 15:54 07/17/17 16:33 Infuvite Adult - IV 07/17/17 15:55 Not Given NOW ONE Thiamine HCl 100 mg 07/17/17 15:52 07/17/17 16:32 Vitamin B1 - PO 07/17/17 15:53 Not Given ONCE ONE Progress Note - Progress Note Progress Note: The patient is a 62 year old male with a history of alcohol abuse who presents for evaluation for intoxication following a fall. The patient is pending a CT abdomen/pelvis to rule out a retroperotaneal bleed. Medical Decision Making - Medical Decision Making 07/17/17 21:13 CMP is remarkable for a hyponatremia and hypocalcemia. CT abdomen pelvis demonstrates a partial SMA vein occlusion as read by our radiologist. Given the patient's fall and SMA vein occlusion as well as electrolyte derangement, we believe the patient requires observation admission for further management at this time. We discussed the case with the hospitalist team who accepted the patient for admission. We discussed the results and the plan with the patient who voiced understanding and is agreeable. *DC/Admit/Observation/Transfer Diagnosis at time of Disposition: Hypocalcemia Alcohol intoxication Qualifiers: Complication of substance-induced condition: with unspecified complication Qualified Code(s): F10.929 - Alcohol use, unspecified with intoxication, unspecified - Discharge Dispostion Condition at time of disposition: Stable Admit: Yes - Referrals - Patient Instructions - Post Discharge Activity
--- NOTE | 2017-07-17 22:38 | PN ---
Teaching Attending Note Name of Resident: Wilbert Bartlett ATTENDING PHYSICIAN STATEMENT I saw and evaluated the patient. I reviewed the resident's note and discussed the case with the resident. I agree with the resident's findings and plan as documented. SUBJECTIVE: OBJECTIVE: Vital Signs Period Temp Pulse Resp BP Sys/Spangler Pulse Ox Last 24 Hr 98.3 F 102 20 157/82 96 Laboratory Tests 07/17/17 07/17/17 07/17/17 15:26 15:26 15:26 WBC 5.3 RBC 4.29 Hgb 11.3 L Hct 35.0 L MCV 81.8 MCH 26.3 MCHC 32.2 RDW 21.9 H Plt Count 95 L MPV 9.0 Neutrophils % 68.7 Lymphocytes % 19.9 D Monocytes % 9.3 Eosinophils % 0.7 Basophils % 1.4 Sodium 135 L Potassium 3.5 Chloride 98 Carbon Dioxide 25 Anion Gap 12 BUN 5 L Creatinine 0.7 D Creat Clearance w eGFR > 60 Random Glucose 89 Calcium 7.7 L Total Bilirubin 1.1 H D AST 115 H D ALT 38 D Alkaline Phosphatase 242 H D Total Protein 7.6 D Albumin 2.9 L Alcohol, Quantitative 295.0 H* Home Medications Medication Instructions Recorded NK [No Known Home Medication] 07/17/17 ASSESSMENT AND PLAN:
[2017-07-17] MEDS ORDERED: HEPARIN NA (PORCINE) 5,000 UNITS/ML 1ML VIAL IVPUSH PRN ×2 (22:44)
[2017-07-17] MEDS ORDERED: HEPARIN - 25,000 UNIT in SODIUM CHLORIDE 495 ML IV SCH (22:45)
[2017-07-17] MEDS ORDERED: chlordiazePOXIDE HCL 25 MG CAPSULE PO ONE (22:46)
[2017-07-17] MEDS ORDERED: chlordiazePOXIDE HCL 25 MG CAPSULE PO PRN (22:46)
[2017-07-17] MEDS ORDERED: HEPARIN INFUSION - 25,000 UNITS/500 ML INFUS.BAG IVPB ONE (23:14)
[2017-07-17] MEDS ORDERED: chlordiazePOXIDE HCL 25 MG CAPSULE ONE (23:14)
[2017-07-18 01:21] VITALS: BMI 27.5
--- NOTE | 2017-07-18 02:03 | HP ---
CHIEF COMPLAINT: Back pain PCP: HISTORY OF PRESENT ILLNESS: The Patient is a 62 yo m w/ PMH ETOH abuse who comes into the ED s/p fall. Patient states that he had 5 beers today and fell while getting out of his car. The patient struck his buttock on the ground and was unable to get up. A bystander called EMS and they brought him to the ED. In the ED, the patent complains of sacral and right flank pain. Patient denies LOC, head trauma, palpitations, SOB, chest pain, fevers, chills. 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 (3) Recent Travel: denies PAST MEDICAL HISTORY: same as HPI PAST SURGICAL HISTORY: none Social History: Smoking: smokes 5-6 cigarettes daily for the past 35 yrs Alcohol: has approx 5 cans of beer daily, last drink today Drugs: denies Family History: non-contributory Allergies Penicillins Allergy (Severe, Verified 07/17/17 13:11) Swelling HOME MEDICATIONS: Home Medications Medication Instructions Recorded NK [No Known Home Medication] 07/17/17 REVIEW OF SYSTEMS CONSTITUTIONAL: Absent: fever, chills, diaphoresis, generalized weakness, malaise, loss of appetite, weight change HEENT: Absent: rhinorrhea, nasal congestion, throat pain, throat swelling, difficulty swallowing, mouth swelling, ear pain, eye pain, visual changes CARDIOVASCULAR: Absent: chest pain, syncope, palpitations, irregular heart rate, lightheadedness , peripheral edema RESPIRATORY: Absent: cough, shortness of breath, dyspnea with exertion, orthopnea, wheezing, stridor, hemoptysis GASTROINTESTINAL: Absent: abdominal pain, abdominal distension, nausea, vomiting, diarrhea, constipation, melena, hematochezia GENITOURINARY: Absent: dysuria, frequency, urgency, hesitancy, hematuria, flank pain, genital pain MUSCULOSKELETAL: Absent: myalgia, arthralgia, joint swelling SKIN: Absent: rash, itching, pallor HEMATOLOGIC/IMMUNOLOGIC: Absent: easy bleeding, easy bruising, lymphadenopathy, frequent infections ENDOCRINE: Absent: unexplained weight gain, unexplained weight loss, heat intolerance, cold intolerance NEUROLOGIC: Absent: headache, focal weakness or paresthesias, dizziness, unsteady gait, seizure, mental status changes, bladder or bowel incontinence PSYCHIATRIC: Absent: anxiety, depression, suicidal or homicidal ideation, hallucinations. PHYSICAL EXAMINATION Vital Signs - 24 hr 07/17/17 07/17/17 07/18/17 13:12 23:53 00:58 Temperature 98.3 F 98.9 F Pulse Rate 102 H 95 H Respiratory 20 20 Rate Blood Pressure 157/82 150/86 O2 Sat by Pulse 96 99 96 Oximetry (%) GENERAL: Awake, alert, and fully oriented, in no acute distress. HEAD: Normal with no signs of trauma. EYES: Pupils equal, round and reactive to light, extraocular movements intact, sclera anicteric, conjunctiva clear. No lid lag. NECK: Normal range of motion, supple without lymphadenopathy, JVD, or masses. LUNGS: Breath sounds equal, clear to auscultation bilaterally. No wheezes, and no crackles. No accessory muscle use. HEART: Regular rate and rhythm, normal S1 and S2. 3/6 Systolic ejection murmur best heard at the right upper sternal border with radiation to both the carotids and axilla. ABDOMEN: Soft, nontender, not distended, normoactive bowel sounds, no guarding, no rebound, no masses. No hepatomegaly or splenomegaly. MUSCULOSKELETAL: Mild tenderness to palpation in the sacral area. Tenderness to palpation along the right flank LOWER EXTREMITIES: 2+ pulses, warm, well-perfused. No calf tenderness. No peripheral edema. NEUROLOGICAL: Cranial nerves II-XII intact. Normal speech. SKIN: Warm, dry, normal turgor, no rashes or lesions noted, normal capillary refill. Ecchymosis noted over right flank in midaxillary line. Laboratory Results - last 24 hr 07/17/17 07/17/17 07/17/17 15:26 15:26 15:26 WBC 5.3 RBC 4.29 Hgb 11.3 L Hct 35.0 L MCV 81.8 MCH 26.3 MCHC 32.2 RDW 21.9 H Plt Count 95 L MPV 9.0 Neutrophils % 68.7 Lymphocytes % 19.9 D Monocytes % 9.3 Eosinophils % 0.7 Basophils % 1.4 Sodium 135 L Potassium 3.5 Chloride 98 Carbon Dioxide 25 Anion Gap 12 BUN 5 L Creatinine 0.7 D Creat Clearance w eGFR > 60 Random Glucose 89 Calcium 7.7 L Total Bilirubin 1.1 H D AST 115 H D ALT 38 D Alkaline Phosphatase 242 H D Total Protein 7.6 D Albumin 2.9 L Alcohol, Quantitative 295.0 H* ASSESSMENT/PLAN: The patient is a 62 yo m w/ PMH ETOH abuse who is being admitted to the hospital for further workup of a superior mesenteric vein thrombus. #partially occlusive superior mesenteric vein thrombus -patient asymptomatic at this time -Vascular surgery consulted; discussed case w/ Dr. Celeste -Heparin GTT -Abd US to eval acute vs. chronic thrombus #ETOH abuse -s/p banana bag in ED -Librium protocol -CIWA approx. 8 #Systolic ejection murmur -patient aware and has had this murmur since childhood #FEN -no fluids indicated -lytes WNL -regular diet (surgery not indicated) #Prophylaxis -Hep GTT #Dispo -admit to med surg Visit type - Emergency Visit Emergency Visit: Yes ED Registration Date: 07/17/17 Care time: The patient presented to the Emergency Department on the above date and was hospitalized for further evaluation of their emergent condition. - New Patient This patient is new to me today: Yes Date on this admission: 07/18/17 - Critical Care Critical Care patient: No Hospitalist Screening - Colonoscopy Questionnaire Colonoscopy Questionnaire: Colonoscopy Questionnaire - Patient: 50 - 75 years old and never had a screening colonoscopy: Unknown History of colon or rectal polyps, or CA: Unknown History of IBD, Crohn's disease or UC: Unknown History of abdominal radiation therapy as a child: Unknown - Relative: 1 with colon or rectal CA, or polyps at age 60 or younger: Unknown Colon or rectal CA diagnosed at age 45 or younger: Unknown Multiple relatives with colon or rectal CA: Unknown - Outcome: Screening Result: Negative Screen
[2017-07-18] MEDS: chlordiazePOXIDE HCL 25 MG CAPSULE PO SCH ×3 (05:10→17:23)
[2017-07-18 07:13] LABS: BASO % 1.3 % (0-2.0); EOS % 1.5 % (0-4.5); HEMATOCRIT 32.6 % (35.4-49); HEMOGLOBIN 10.6 GM/dL (11.7-16.9); LYMPH % 14.1 % (8-40); MCH 26.4 pg (25.7-33.7); MCHC 32.4 g/dl (32.0-35.9); MEAN CELL VOLUME 81.5 fl (80-96); MEAN PLT VOLUME 8.7 fl (7.5-11.1); MONO % 9.7 % (3.8-10.2); NEUT % 73.4 % (42.8-82.8); PLATELET COUNT 65 K/MM3 (134-434); RDW 22.1 % (11.9-15.9); WHITE BLOOD COUNT 4.7 K/mm3 (4.0-10.0)
[2017-07-18 08:03] LABS: INR 1.22 (0.82-1.09); PROTHROMBIN TIME (PATIENT) 13.8 SEC (9.98-11.88)
[2017-07-18 08:17] LABS: ALBUMIN 2.5 g/dl (3.4-5.0); ANION GAP 11 (8-16); BLOOD UREA NITROGEN 5 mg/dL (7-18); CALCIUM 8.1 mg/dL (8.5-10.1); CHLORIDE 101 mmol/L (98-107); CO2 27 mmol/L (21-32); GLUCOSE,RANDOM 76 mg/dL (74-106); POTASSIUM 3.3 mmol/L (3.5-5.1); SGOT/AST 93 U/L (15-37); SGPT/ALT 36 U/L (12-78); SODIUM 139 mmol/L (136-145)
[2017-07-18 08:20] LABS: ALK PHOS 217 U/L (45-117); BILIRUBIN,TOTAL 2.1 mg/dL (0.2-1.0); CREATININE 0.7 mg/dL (0.7-1.3); TOT PROT 6.9 g/dl (6.4-8.2)
[2017-07-18] MEDS ORDERED: POTASSIUM CHLORIDE TABS 20 MEQ TABLET.ER (FP) PO ONE ×2 (10:30→14:00)
[2017-07-18 14:15] VITALS: BP 148/85; PULSE 108; TEMP 98.7
[2017-07-18] MEDS ORDERED: FOLIC ACID INJECTION - 1 MG, THIAMINE HCL 100 MG, MULTIVIT INJECTION ADULT 10 ML in SOD... IVPB ONE (14:59)
--- NOTE | 2017-07-18 15:07 | PN ---
Teaching Attending Note Name of Resident: Joselo Romeo ATTENDING PHYSICIAN STATEMENT I saw and evaluated the patient. I reviewed the resident's note and discussed the case with the resident. I agree with the resident's findings and plan as documented. SUBJECTIVE:states he has no symptoms. that he arrived to ER after he fell out of his car. states he does not have a drinking problem and only drinks 5 beers/ day, has never had withdrawals when he stopped drinking. unclear if he has PMD. denies liver disease or abdominal pain. denies CP, SOB, fever, chills, N/V/C/D, ACOSTA, auditory/visual hallucinations OBJECTIVE: Last Vital Signs Temp Pulse Resp BP Pulse Ox 98.7 F 108 H 20 148/85 96 07/18/17 14:00 07/18/17 14:00 07/18/17 14:00 07/18/17 14:00 07/18/17 00:58 General mild anxious, ed complexion, diaphoretic CV S1 S2 tachy Lungs CTA B/L no wheezing/rale/rhonchi Abdomen soft NT/ND multiple hemangioma, +umbilical hernia. prominent veins on the abdomen. can not appreciate liver edge extremiteis + tremor at rest Skin large ecchymotic area L flank ASSESSMENT AND PLAN: 62yo M wtih PMH continuous ETOH dependence presented to the ER after mechanical fall and found to have partial SMA obstruction 1. 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 u/s pending. on hep ggt. awaiting vascular surgeon consult 2. ETOH withdrawal- CIWA 6. on lirbirum taper. will cont for now. give banana bag. start thiamine/folate/MVI. 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 Cirrhosis- likely due to ETOH. discriminate function score 10.9. states he has no hx however did have EGD several years ago (for screening purposes?) reports was normal. has clear signs of cirrhosis on imaging iwth varices and labs suggestive of cirrhosis. will check hepatitis panel to r/o alternate causes. GI consult 4. Thrombocytopenia- due to ETOH. monitor closely on hep ggt 5. Hyperbilirubinemia- due to cirrhosis. no signs of CBD dilation. u/s to further evaluate 6. mechanical fall- due to acute intoxication. large ecchymoss noted. CT negative for retroperitoneal bleeding. imaging noted. will need PT 7. hypokalemia- KCL po 8. Anemia- dilutional. will trend. no indication for txn at this time 9. DVT ppx- hep ggt
--- NOTE | 2017-07-18 15:50 | CON.GI ---
Consult Consult Specialty:: GI Referred by:: Hospitalist Reason for Consultation:: Cirrhosis and SMV thrombus - History of Present Illness Chief Complaint: I fell getting out of my car History of Present Illness: 62M admitted for evaluation of fall. He states that he fell getting out of his car. In the ER he was noted to have a blood alcohol level of 295. He was noted to be thrombocytopenic and coagulopathic as well. CT scan revealed a cirrhotic appearing liver and partial occulsion of the proximal SMV. When I evaluated Mr. Nieves, he was already on a heparin drip, presumably due to the SMV thrombus. He denies abdominal pain, nausea, vomiting, dysphagia, odynophagia, rectal bleeding, melena. He believes that he may have had a colonoscopy 10 years ago at [facility] but was unclear if he ever had an EGD. He explains that he drinks 5-6 beers per day for 30 years. He denies any knowledge of having liver disease. He denies family history of liver disease, IVDU. He does state that he has had alcohol withdrawal in the past and has never sought rehab. - History Source History Provided By: Patient, Medical Record - Past Medical History [employer]UTENANT FIREFIGHTER: Yes: Other (Tremor) Hepatobiliary: Yes: Cirrhosis (alcoholic) Psych: Yes: Addictions (alcohol) - Past Surgical History Additional Surgical History: right knee surgery at age 6 - Alcohol/Substance Use Hx Alcohol Use: Yes Number of Drinks Daily: 6 (Range 6-14 /day) History of Substance Use: reports: None - Smoking History Smoking history: Current every day smoker Have you smoked in the past 12 months: Yes Aproximately how many cigarettes per day: 15 - Social History Usual Living Arrangement: Alone ADL: Independent Place of : [facility] History of Recent Travel: No Home Medications - Allergies Allergies/Adverse Reactions: Allergies Allergy/AdvReac Type Severity Reaction Status Date / Time Penicillins Allergy Severe Swelling Verified 07/17/17 13:11 - Home Medications Home Medications: Ambulatory Orders NK [No Known Home Medication] 07/17/17 Family Disease History - Family Disease History Family Disease History: Other: Father (: 80: stomach cancer), Mother (: 74: dementia), Brother (1, 55: drowned), Daughter (1, healthy) Other Family History: No family history of liver disease / colorectal cancer Review of Systems - Review of Systems Constitutional: denies: Chills Cardiovascular: denies: Chest Pain Respiratory: denies: SOB Gastrointestinal: denies: Abdominal Pain, Constipation, Diarrhea, Melena, Rectal Bleeding Physical Exam-GI Vital Signs: Vital Signs Temperature 98.7 F 07/18/17 14:00 Pulse Rate 108 H 07/18/17 14:00 Respiratory Rate 20 07/18/17 14:00 Blood Pressure 148/85 07/18/17 14:00 O2 Sat by Pulse Oximetry (%) 96 07/18/17 00:58 Constitutional: Yes: Calm Eyes: No: Sclera Icterus Cardiovascular: Yes: Tachycardia Respiratory: Yes: CTA Bilaterally Gastrointestinal Inspection: No: Distention, Scars ...Auscultate: Yes: Normoactive Bowel Sounds ...Palpate: Yes: Soft. No: Hepatomegaly, Splenomegaly, Tenderness ...Percussion: No: Tympanitic ...Rectal Exam: Yes: Other (No external lesions, no masses, ramirez stool, guaiac negative) Peripheral Pulses WNL: No Neurological: Yes: Alert, Oriented (x person, place, time), Tremors. No: [facility] Labs: CBC, BMP 07/18/17 06:40 07/18/17 06:40 INR, PTT INR 1.22 (0.82-1.09) H 07/18/17 06:40 Imaging - Results Cat Scan: Report Reviewed Problem List - Problems (1) Cirrhosis of liver Assessment/Plan: Due to alcohol abuse This was discussed with Mr. Nieves. Discussed risks of chronic liver disease such as liver cancer, bleeding varices, ascites, encephalopathy all of which could be potentially life threatening Will need Q 6 month Liver US to screen for HCC Advised the need for complete alcohol cessation On Librium protocol given h/o alcohol withdrawal Code(s): K74.60 - UNSPECIFIED CIRRHOSIS OF LIVER (2) Superior mesenteric vein thrombosis Assessment/Plan: This finding was discussed with Dr. Natacha lares, transplant welt maker at [facility]. A decision was made to transfer Mr. Nieves to [facility] for further evaluation given the complexity of his clinical condition: He is an alcoholic with potential fall risk / cirrohotic with thrombocytopenia / coaguloapthy and likely with varices. Decision to continue chronic anticoagulation will be determined there. In the interim Mr. Nieves is on a heparin drip. I advised the primary team that he will need PTT checked and monitored. Code(s): I81 - PORTAL VEIN THROMBOSIS
--- NOTE | 2017-07-18 16:33 | DS ---
Physical Exam: SUBJECTIVE: Patient seen and examined No acute events overnight. Pt endorses mild flank pain. He denies chest pain, shortness of breath, n/v/d/c, dysuria, abdominal pain, fevers, chills, anxiety, diaphoresis. OBJECTIVE: Vital Signs Period Temp Pulse Resp BP Sys/Spangler Pulse Ox Last 24 Hr 98.7 F-99.2 F 95-108 20-22 138-174/81-97 96-99 PHYSICAL EXAM GENERAL: middle aged disheveled male, lying in bed HEENT: NC, AT, scleral icterus NECK: Trachea midline, full range of motion, supple. LUNGS: Breath sounds equal, clear to auscultation bilaterally, no wheezes, no crackles, no accessory muscle use. HEART: systolic murmur, regular rate ABDOMEN: distended, small reducible umbilical hernia, no hepatomegaly palpable EXTREMITIES: 2+ pulses, warm, well-perfused, no edema. NEUROLOGICAL: AAOx3, impaired [id number] test, sensation and strength intact LABS Laboratory Results - last 24 hr 07/17/17 07/18/17 07/18/17 15:26 00:40 06:40 WBC 4.7 RBC 4.00 Hgb 10.6 L Hct 32.6 L MCV 81.5 MCH 26.4 MCHC 32.4 RDW 22.1 H Plt Count 65 L D MPV 8.7 Neutrophils % 73.4 Lymphocytes % 14.1 D Monocytes % 9.7 Eosinophils % 1.5 D Basophils % 1.3 PT with INR INR Sodium Potassium Chloride Carbon Dioxide Anion Gap BUN Creatinine Creat Clearance w eGFR Random Glucose Calcium Phosphorus Magnesium Total Bilirubin AST ALT Alkaline Phosphatase Total Protein Albumin Alcohol, Quantitative 295.0 H* Blood Type O POSITIVE Antibody Screen Negative 07/18/17 07/18/17 06:40 06:40 WBC RBC Hgb Hct MCV MCH MCHC RDW Plt Count MPV Neutrophils % Lymphocytes % Monocytes % Eosinophils % Basophils % PT with INR 13.80 H INR 1.22 H Sodium 139 Potassium 3.3 L Chloride 101 Carbon Dioxide 27 Anion Gap 11 BUN 5 L Creatinine 0.7 Creat Clearance w eGFR > 60 Random Glucose 76 Calcium 8.1 L Phosphorus 3.0 D Magnesium 2.0 Total Bilirubin 2.1 H D AST 93 H ALT 36 Alkaline Phosphatase 217 H Total Protein 6.9 Albumin 2.5 L Alcohol, Quantitative Blood Type Antibody Screen CT abdomen/pelvis: ADDENDUM: Urinary retention is identified. ORIGINAL REPORT Abdomen and pelvis CT (without and with contrast) Clinical information: evaluate for retroperitoneal bleed Multiplanar imaging was performed before and following the intravenous administration of nonionic contrast. Oral contrast was not administered. No prior CT studies are available at this facility for direct comparison. Prominent atherosclerotic coronary artery calcifications are visualized. No retroperitoneal hemorrhage is seen. Partially occlusive thrombus is seen within the upper most aspect of the superior mesenteric vein. Hepatic cirrhosis is noted. There is diffuse fatty infiltration liver. No gross mass lesion is seen on portal venous phase imaging. Mild splenomegaly is noted. There is mild mesenteric edema centrally. Perisplenic and perihepatic varices identified. The urinary bladder is overdistended with an approximate volume of 1000 mL. Mild prostate enlargement. There is no aortic aneurysm. No obvious CT evidence of acute appendicitis or diverticulitis. There is no free intraperitoneal fluid or pneumoperitoneum. No bowel obstruction is noted. IMPRESSION: No retroperitoneal hemorrhage is seen. Partially occlusive thrombus is seen within the upper aspect of the superior mesenteric vein. Hepatic cirrhosis. Diffuse hepatic steatosis. Mild splenomegaly. Varices. Reported By: Zana Frias MD 07/17/172043 Abdomen and pelvis CT (without and with contrast) Clinical information: evaluate for retroperitoneal bleed Multiplanar imaging was performed before and following the intravenous administration of nonionic contrast. Oral contrast was not administered. No prior CT studies are available at this facility for direct comparison. Prominent atherosclerotic coronary artery calcifications are visualized. No retroperitoneal hemorrhage is seen. Partially occlusive thrombus is seen within the upper most aspect of the superior mesenteric vein. Hepatic cirrhosis is noted. There is diffuse fatty infiltration liver. No gross mass lesion is seen on portal venous phase imaging. Mild splenomegaly is noted. There is mild mesenteric edema centrally. Perisplenic and perihepatic varices identified. The urinary bladder is overdistended with an approximate volume of 1000 mL. Mild prostate enlargement. There is no aortic aneurysm. No obvious CT evidence of acute appendicitis or diverticulitis. There is no free intraperitoneal fluid or pneumoperitoneum. No bowel obstruction is noted. IMPRESSION: No retroperitoneal hemorrhage is seen. Partially occlusive thrombus is seen within the upper aspect of the superior mesenteric vein. Hepatic cirrhosis. Diffuse hepatic steatosis. Mild splenomegaly. Varices. HOSPITAL COURSE: Date of Admission:07/17/17 Date of Discharge: 07/18/17 62M w/ PMH of continuous ETOH dependence who presented to the ER after a mechanical fall and was found to have normocytic anemia, abnormal LFTs, and a partial SMV obstruction. Per vascular surgery, pt was placed on a heparin gtt. An abdominal US was completed to determine if thrombus was acute vs. chronic, final read pending. Pt was placed on a librium taper for alcohol withdrawal as well as given a banana bag. On CT, pt was found to have cirrhosis with mild splenomegaly and varices. Discriminate function score of 10.9. Hepatitis panel was ordered, and GI consulted. Per GI, cirrhosis due to alcohol abuse. This was discussed with Mr. Nieves as well as risks of chronic liver disease such as liver cancer, bleeding varices, ascites, encephalopathy all of which could be potentially life threatening. Pt will need Q 6 month Liver US to screen for HCC. Advised the need for complete alcohol cessation. On Librium protocol given h/o alcohol withdrawal. Per GI, the patient's case was discussed with Dr. Natacha lares, transplant dictating machine transcriber at [facility]. A decision was made to transfer Mr. Nieves to [facility] for further evaluation given the complexity of his clinical condition: He is an alcoholic with potential fall risk / cirrohotic with thrombocytopenia / coaguloapthy and likely with varices. Decision to continue chronic anticoagulation will be determined there. In the interim Mr. Nieves is on a heparin drip. -Joselo Romeo MD PGY1 Minutes to complete discharge: 37 Discharge Summary Reason For Visit: HYPOCALCEMIA/ALCOHOL INTOX Current Active Problems Alcohol intoxication (Acute) Cirrhosis of liver (Acute) Hypocalcemia (Acute) Superior mesenteric vein thrombosis (Acute) Condition: Stable - Instructions Diet, Activity, Other Instructions: You presented after a fall, and you were found to have a clot in your superior mesenteric vein as well as liver cirrhosis. You are being transferred to [facility] which has the required resources to treat you effectively. Medications: as per GI and vascular surgery. Follow-ups: 1. PCP in one week. If you don't have one, we have referred you to Dr. Villarreal's office. 2. vascular surgery, Dr. Celeste, in one week. 3. GI, Dr. Brady, in one week. If you develop any shortness of breath, chest pain, or any other concerning symptoms, return to the ED. Referrals: Franki Villarreal MD [Staff Physician] - Hardik Brady MD [Staff Physician] - Binh Celeste MD [Staff Physician] - Disposition: TRANSFER ACUTE CARE/OTHER HOSP - Home Medications Comprehensive Discharge Medication List: Ambulatory Orders Chlordiazepoxide [Librium -] 15 mg PO [id number] #4 capsule MDD 60 07/18/17 Chlordiazepoxide [Librium -] 25 mg PO Q4H PRN #4 capsule MDD 100 07/18/17 Chlordiazepoxide [Librium -] 25 mg PO [id number] #4 capsule MDD 100 07/18/17 Chlordiazepoxide [Librium -] 50 mg PO [id number] #4 capsule MDD 200 07/18/17 Heparin - 1,000 unit IVPUSH PRN PRN vial 07/18/17 Heparin - 5,000 unit IVPUSH PRN PRN vial 07/18/17 Heparin - 25,000 unit IV TITR vial 07/18/17 This patient is new to me today: No Emergency Visit: Yes ED Registration Date: 07/17/17 Care time: The patient presented to the Emergency Department on the above date and was hospitalized for further evaluation of their emergent condition. Critical Care patient: No - Discharge Referral Referred to [facility] No
[2017-07-19] MEDS ORDERED: chlordiazePOXIDE 5 MG CAPSULE PO SCH (05:00)
== END 2017-07-18 17:50 | disposition short-term general hospital (02) | DRG 279 ==
LOC: JER 12:59 → JERBED 21:12 → OBSVTOIN 22:28 → J6S 07-18 00:24
PROVIDERS: ADMIT Internal Medicine; ATTEND Internal Medicine
PROC: HZ2ZZZZ Detoxification Services for Substance Abuse Treatment (ICD-10-PCS; principal; 2017-07-17)
DX: I81 Portal vein thrombosis (principal); E83.51 Hypocalcemia; Y90.8 Blood alcohol level of 240 mg/100 ml or more; F17.200 Nicotine dependence, unspecified, uncomplicated; R01.1 Cardiac murmur, unspecified; K42.9 Umbilical hernia without obstruction or gangrene; K70.30 Alcoholic cirrhosis of liver without ascites; D69.6 Thrombocytopenia, unspecified; E87.6 Hypokalemia; D64.9 Anemia, unspecified; E80.6 Other disorders of bilirubin metabolism; F10.239 Alcohol dependence with withdrawal, unspecified; S30.1XXA Contusion of abdominal wall, initial encounter; W18.39XA Other fall on same level, initial encounter; Y92.89 Other specified places as the place of occurrence of the external cause; D68.8 Other specified coagulation defects; R00.0 Tachycardia, unspecified; R33.9 Retention of urine, unspecified; R79.89 Other specified abnormal findings of blood chemistry; R16.1 Splenomegaly, not elsewhere classified
CPT/HCPCS: 36415; 70450-TC; 72125-TC; 74178-TC; 76705-TC; 80053; 80307; 83735; 84100; 85025; 85610; 85730; 86850; 86900; 86901; 99285-25; G0378; J1644